=== PATIENT | male | born 1970 | race Caucasian/White ===

== ENCOUNTER 2018-04-17 09:35 | Day surgery (SDC) | payer OTHER ==
[2018-04-17 09:35] LABS: Absolute Lymphocytes (CBC) 1.4 K/uL (0.7-4.9); Absolute Monocytes 0.4 K/uL (0.1-1.3); Absolute Neutrophil 4.6 K/uL (1.8-8.0); Basophils % 0.9 % (0-1.3); Eosinophils % 4.3 % (0-4.4); Hematocrit 47.1 % (39.6-49.0); Lymphocytes % 21.1 % (15.3-44.8); MCH 31.5 pg (27.0-35.0); MCV 96.2 fL (80-100); Monocytes % 5.4 % (3.3-12.3)
--- OUTSIDE RECORDS SUMMARY | 2018-04-17 09:39 | XMS REPORT | Clinical Summary ---
:1970 Author Organization [facility] Address [address] [place] [address] Care Team Providers Name Role Phone Asked, No Pcp Primary Care Provider Unavailable Allergies No Known Allergies Current Medications Prescription Sig. Disp. Refills Start Date End Date Status metoprolol tartrate Take 25 mg by Active (LOPRESSOR) 25 MG mouth daily. tablet levothyroxine Take 125 mcg Active (SYNTHROID, by mouth LEVOTHROID) 125 MCG every tablet morning. spironolactone Take 25 mg by Active (ALDACTONE) 25 MG mouth daily. tablet torsemide (DEMADEX) TAKE ONE & 45 tablet 0 02/02/2017 Active 20 MG tablet ONE-HALF TABLETS BY MOUTH ONCE DAILY lisinopril Take 10 mg by Active (PRINIVIL,ZESTRIL) mouth daily. 10 mg tablet amitriptyline Take 25 mg by 07/15/2017 Discontinued (ELAVIL) 25 MG mouth tablet nightly. aspirin (ECOTRIN) 81 Take 81 mg by 07/15/2017 Discontinued MG enteric coated mouth daily. tablet digOXIN (LANOXIN) Take 125 mcg 07/15/2017 Discontinued 125 mcg tablet by mouth daily. Active Problems Patient Care Coordination Note Pt has [employer] device Problem Noted Date Hypotension 08/26/2016 SOB (shortness of breath) on exertion 08/24/2016 Encounters Date Type Specialty Care Team Description 07/21/2017 Documentation Cardiology Macrina Huffman RN 07/15/2017 Hospital Encounter Procedural Sharon, Essential hypertension; Cardiology MD Shahana Congestive heart failure, unspecified congestive heart failure chronicity, unspecified congestive heart failure type 07/15/2017 Office Visit Cardiology Sharon Essential hypertension ( Primary Dx); MD Shahana Congestive heart failure, unspecified congestive heart failure chronicity, unspecified congestive heart failure type 07/15/2017 Orders Only Cardiology Shahana Herrera MD after 04/16/2017 Social History Tobacco Use Types Packs/Day Years Used Date Current Some Day Smoker Cigarettes 3 Tobacco Cessation: Ready to Quit: No Comments: 3-6 CIGARETTES /DAY Alcohol Use Drinks/Week oz/Week Comments Yes 3-6 Cans of beer 3.6 - 7.2 3 X A WEEK OCCASIONALY 3-6 Shots of liquor Sex Assigned at Date Recorded Not on file Last Filed Vital Signs Vital Sign Reading Time Taken Blood Pressure 155/109 07/15/2017 4:01 PM CDT Pulse 95 07/15/2017 4:01 PM CDT Temperature - - Respiratory Rate 16 07/15/2017 4:01 PM CDT Oxygen Saturation 99% 07/15/2017 4:01 PM CDT Inhaled Oxygen Concentration - - Weight 76.5 kg (168 lb 9.6 oz) 07/15/2017 4:01 PM CDT Height 177.8 cm (5' 10") 07/15/2017 4:01 PM CDT Body Mass Index 24.19 07/15/2017 4:01 PM CDT Plan of Treatment Health Maintenance Due Date Last Done Comments INFLUENZA VACCINE 05/17/2018 Implants Implanted Type Area Pharmacy Delivery Driver Device Identifier Expiration Date Model / Serial / Lot Aicd Aicd Procedures Procedure Name Priority Date/Time Associated Comments Diagnosis ECHOCARDIOGRAM 2D Routine 07/15/2017 5:56 Essential Results for this COMPLETE W MMODE PM CDT hypertension procedure are in SPECTRAL COLOR DOPPLER Congestive heart the results (33371) failure, section. unspecified congestive heart failure chronicity, unspecified congestive heart failure type THYROID STIMULATING Routine 07/15/2017 4:45 Results for this HORMONE PM CDT procedure are in the results section. CBC WITH PLATELET AND Routine 07/15/2017 4:45 Results for this DIFFERENTIAL PM CDT procedure are in the results section. SEDIMENTATION RATE Routine 07/15/2017 4:45 Results for this PM CDT procedure are in the results section. COBALT, SERUM OR PLASMA Routine 07/15/2017 4:45 Results for this PM CDT procedure are in the results section. COMPREHENSIVE METABOLIC Routine 07/15/2017 4:45 Results for this PANEL PM CDT procedure are in the results section. ECG 12-LEAD Routine 07/15/2017 4:10 Essential Results for this PM CDT hypertension procedure are in Congestive heart the results failure, section. unspecified congestive heart failure chronicity, unspecified congestive heart failure type after 04/16/2017 Results Echocardiogram complete w contrast and 3D if needed (07/15/2017 5:56 PM) Narrative Performed At [facility] Echocardiography Report [id number] [facility], [place] [id number] Pat.Name:Naz CRUMP.ID:[id number] .Date: 07/15/2017 Refer.MD:SHAHANA HERRERA MD Exam Time: 5:15:00 PMStudy Type:Routine Echo Height:70inWeight: 168lb BSA: 1.94 m2 DOBAge:1970,46Y Sex: MALEBP:157/102 HR:89 bpmSonogrphr: PAPITO Cameron Pat. Stat.:OutpatientStudy Status:Final Echo Event ID:[id number] Order ID:[id number] Reason for Study:Dx,Essential hypertension [I10 (ICD-10-CM)]; Congestive heart failure, unspecified congestive heart failure chronicity, unspecified congestive heart failure type [I50.9 (ICD-10-CM)] History / Clinical:Congestive Heart Failure, Smoker /2 PPD, quit 06/2011, Shortness of Breath, Ex-Smoker(quit 06/2011), Thyroid Cancer, Atrial Fibrillation, Chest Pain, Chromium and [place] Toxicity Procedures:2D Echo, Colorflow Doppler Race:C SUMMARY: LV size is moderately enlarged. LV systolic function is moderately to severely depressed. EF=31%. LA size is normal. Diastolic dysfunction Grade I (Mild): Impaired relaxation with normal LV filling pressures. Insufficient TR jet to estimate PA systolic pressure. Unchanged from 2015. FINDINGS: LV: LV size is moderately enlarged. LV systolic function is moderatelyto severely depressed. Global hypokinesis. EF=31%. RV: RV size is normal. RV systolic function is normal. LA: LA size is normal. RA: RA size is normal. AO: Aortic root diameter is normal. SANDRO: No pericardial effusion. AV: No structural AV abnormalities noted. MV: No structural MV abnormalities noted. PV: No structural PV abnormalities noted. TV: No structural TV abnormalities noted. Luis: Diastolic dysfunction Grade I (Mild): Impaired relaxation withnormal LV filling pressures. Other:Insufficient TR jet to estimate PA systolic pressure. MEASUREMENTS: 2D Parasternal Long [place] LVOT 2.6 cmLA Ds3.8 cm LVIDd6.1 cmIndex3.2 cm/m Ao An2.8 cm LVIDs5.4 cmAo Rtd 3.8 cm Index1.9 cm/m LV%fs 11.4 % LV Dpcj577.4 g(122-174) IVSd 0.8 cmLVM Grvoq219.7 g/m2 LVPWd0.8 cmRWT0.3 LV EF SinglePlane LV Ad 43.6 cm2(9.5-22.3) SWOVQ607.5 ml Index60 ml/m PJSAB116.9 ml (65-193) Index88.1 ml/m LV SV 54.4 ml LV As 34.5 cm2(4-11.6) LV EF 31.8 %(63-77) LA Sng Plane LA Area 17.7 cm2(8.8-23.4) LA Vol54.2 ml Index27.9 ml/m LA LngAx 4.8 cm DOPPLER LVOT For Flow LVOT Area5.3 cm2 LVOT SV 66.4 ml LVOTpkVel 65.7 cm/sHR87.3 bpm LVOTpkPG 1.7 mmHgLVOT CO5.8 l/min LVOTmnPG 0.9 mmHgLVOT CI3 l/m/m2 LVOT TVI12.5 cm Signed 07/17/2017 08:39 PM Zane Ibanez M.D. Procedure Note Interface, Radiology Results In - 07/17/2017 8:40 PM CDT Echocardiography Report [id number] [address] Pat.Name: JERRICA CRUMP.ID: [id number] .Date: 07/15/2017 Refer.MD: SHAHANA HERRERA MD Exam Time: 5:15:00 PM Study Type:Routine Echo Height: 70in Weight: 168lb BSA: 1.94 m2 Age: 2 1970,46Y Sex: MALE BP: 157/102 HR: 89 bpm Sonogrphr: PAPITO Cameron Pat. Stat.:Outpatient Study Status:Final Echo Event ID:[id number] Order ID: [id number] Reason for Study:Dx, Essential hypertension [I10 (ICD-10-CM)]; Congestive heart failure, unspecified congestive heart failure chronicity, unspecified congestive heart failure type [I50.9 (ICD-10-CM)] History / Clinical:Congestive Heart Failure, Smoker /2 PPD, quit 06/2011, Shortness of Breath, Ex-Smoker(quit 06/2011), Thyroid Cancer, Atrial Fibrillation, Chest Pain, Chromium and [place] Toxicity Procedures:2D Echo, Colorflow Doppler Race: C SUMMARY: LV size is moderately enlarged. LV systolic function is moderately to severely depressed. EF=31%. LA size is normal. Diastolic dysfunction Grade I (Mild): Impaired relaxation with normal LV filling pressures. Insufficient TR jet to estimate PA systolic pressure. Unchanged from 2015. FINDINGS: LV: LV size is moderately enlarged. LV systolic function is moderately to severely depressed. Global hypokinesis. EF=31%. RV: RV size is normal. RV systolic function is normal. LA: LA size is normal. RA: RA size is normal. AO: Aortic root diameter is normal. SANDRO: No pericardial effusion. AV: No structural AV abnormalities noted. MV: No structural MV abnormalities noted. PV: No structural PV abnormalities noted. TV: No structural TV abnormalities noted. Luis: Diastolic dysfunction Grade I (Mild): Impaired relaxation with normal LV filling pressures. Other: Insufficient TR jet to estimate PA systolic pressure. MEASUREMENTS: 2D Parasternal Long [place] LVOT 2.6 cm LA Ds 3.8 cm LVIDd 6.1 cm Index 3.2 cm/m Ao An 2.8 cm LVIDs 5.4 cm Ao Rtd 3.8 cm Index 1.9 cm/m LV%fs 11.4 % LV Mass 195.4 g (122-174) IVSd 0.8 cm LVM Index 100.7 g/m2 LVPWd 0.8 cm RWT 0.3 LV EF SinglePlane LV Ad 43.6 cm2 (9.5-22.3) LVESV 116.5 ml Index 60 ml/m LVEDV 170.9 ml (65-193) Index 88.1 ml/m LV SV 54.4 ml LV As 34.5 cm2 (4-11.6) LV EF 31.8 % (63-77) LA Sng Plane LA Area 17.7 cm2 (8.8-23.4) LA Vol 54.2 ml Index 27.9 ml/m LA LngAx 4.8 cm DOPPLER LVOT For Flow LVOT Area 5.3 cm2 LVOT SV 66.4 ml LVOTpkVel 65.7 cm/s HR 87.3 bpm LVOTpkPG 1.7 mmHg LVOT CO 5.8 l/min LVOTmnPG 0.9 mmHg LVOT CI 3 l/m/m2 LVOT TVI 12.5 cm Signed 07/17/2017 08:39 PM Zane Ibanez M.D. Performing Organization Address City/State/Zipcode Phone Number [facility] [address] [place] [address] [place], serum or plasma (07/15/2017 4:45 PM) [place], serum or 0.8 (H) 0.1 - 0.4 mcg/L [facility] plasma Comment: [facility]/51edj HUTTO This test was developed and its analytical performance characteristics have been determined by [facility] [place], [place]. It has not been cleared or approved by the U.S. Food and Drug Administration. This assay has been validated pursuant to the CLIA regulations and is used for clinical purposes. Narrative Performed At FASTING:NO [facility] Resulting Agency Comment Performing Organization Information: Site ID: [id number] Name: [facility] Address: [address] [place] [phone] Director: Leeroy Dubon M.D.,PhD Performing Organization Address [facility] Phone Number [facility] [employer] [address] [place] [address] [place] Sedimentation rate (07/15/2017 4:45 PM) Sedimentation rate 2 < OR=15 mm/h [facility] [place] Narrative Performed At FASTING:NO [facility] Resulting Agency Comment Performing Organization Information: Site ID: [id number] Name: [facility] Address: [address] [place] [phone] Director: Lesli Brandon MD Performing Organization Address [facility] Centercode Phone Number [email or web address] [address] [address] CBC with platelet and differential (07/15/2017 4:45 PM) WBC 5.9 3.8 - 10.8 Thousand/uL [facility] [place] RBC 5.03 4.20 - 5.80 Million/uL [facility] [place] HGB 15.6 13.2 - 17.1 g/dL [facility] [place] HCT 46.5 38.5 - 50.0 % [facility] [place] MCV 92.4 80.0 - 100.0 fL [facility] [place] MCH 31.0 27.0 - 33.0 pg [facility] [place] MCHC 33.5 32.0 - 36.0 g/dL [facility] [place] RDW 12.5 11.0 - 15.0 % [facility] [place] Platelet count 225 140 - 400 Thousand/uL [facility] [place] MPV 10.1 7.5 - 12.5 fL [facility] [place] Neutrophils, absolute 3,918 1,500 - 7,800 cells/uL [facility] [place] Lymphocytes, absolute 1,422 850 - 3,900 cells/uL [facility] [place] Monocytes, absolute 348 200 - 950 cells/uL [facility] [place] Eosinophils, absolute 142 15 - 500 cells/uL [facility] [place] Basophils, absolute 71 0 - 200 cells/uL [facility] [place] Neutrophils 66.4 % [facility] [place] Lymphocytes 24.1 % [facility] [place] Monocytes 5.9 % [facility] [place] Eosinophils 2.4 % [facility] [place] Basophils + RC 1.2 % [facility] [place] Narrative Performed At FASTING:NO [facility] Resulting Agency Comment Performing Organization Information: Site ID: [id number] Name: [facility] Address: [address] [place] [phone] Director: Lesli Brandon MD Performing Organization Address City/State/Zipcode Phone Number [email or web address] [place] [phone] Thyroid stimulating hormone (07/15/2017 4:45 PM) TSH 43.19 (H) 0.40 - 4.50 mIU/L [facility] [place] Narrative Performed At FASTING:NO [facility] Resulting Agency Comment Performing Organization Information: Site ID: [id number] Name: [facility] Address: [address] [place] [phone] Director: Lesli Brandon MD Performing Organization Address City/State/Zipcode Phone Number [email or web address] [address] [address] Comprehensive metabolic panel (07/15/2017 4:45 PM) Glucose 92 65 - 99 mg/dL [facility] Comment: [place] Fasting reference interval BUN, whole blood 11 7 - 25 mg/dL [facility] [place] Creatinine 1.23 0.60 - 1.35 mg/dL [facility] [place] EGFR Non-Afr. Z[place]ian 71 > OR=60 [facility] mL/min/1.73m2 [place] EGFR 82 > OR=60 [facility] mL/min/1.73m2 [place] BUN/creatinine ratio NOT APPLICABLE 6 - 22 (calc) [facility] [place] Sodium 142 135 - 146 mmol/L [facility] [place] Potassium 4.4 3.5 - 5.3 mmol/L [facility] [place] Chloride 106 98 - 110 mmol/L [facility] [place] CO2 30 20 - 31 mmol/L [facility] [place] Calcium 9.3 8.6 - 10.3 mg/dL [facility] [place] Protein 7.4 6.1 - 8.1 g/dL [facility] [place] Albumin, S 4.7 3.6 - 5.1 g/dL [facility] [place] Globulin, total 2.7 1.9 - 3.7 g/dL [facility] (calc) [place] Albumin/globulin ratio 1.7 1.0 - 2.5 (calc) [facility] [place] Total bilirubin 0.4 0.2 - 1.2 mg/dL [facility] [place] Alkaline phosphatase 60 40 - 115 U/L [facility] [place] AST 18 10 - 40 U/L [facility] [place] ALT 16 9 - 46 U/L [facility] [place] Narrative Performed At FASTING:NO [facility] Resulting Agency Comment Performing Organization Information: Site ID: [id number] Name: [facility] Address: [address] [place] [phone] Director: Lesli Brandon MD Performing Organization Address City/State/Zipcode Phone Number [email or web address] [place] [phone] ECG 12 lead (07/15/2017 4:10 PM) Ventricular rate 80 [facility] Atrial rate 80 [facility] [place] interval 180 [facility] QRSD interval 92 [facility] QT interval 374 [facility] QTC interval 431 [facility] P axis 1 78 [facility] QRS axis 1 53 [facility] T wave axis 97 [facility] EKG impression Normal sinus rhythm with sinus arrhythmia-Nonspecific T wave abnormality-Abnormal ECG-In automated comparison with ECG of 25-AUG-2016 15:34,- Criteria for Inferior infarct are no longer present-Nonspecific T wave abnormality, worse in Inferior [facility] leads- : 14 AM Performing Organization Address City/State/Zipcode Phone Number [facility] [address] [place] [address] after 04/16/2017 Insurance Payer Benefit Plan / Group Subscriber ID Type Phone Address MEDICARE MEDICARE PART A AND B xxxxxxxxxx Medicare [place], [place] Home: [address] [phone] [place] [phone]
[2018-04-17] MEDS ORDERED: Ringers Lactate 1,000 ML IV ONE (09:58)
[2018-04-17] MEDS ORDERED: CEFAZOLIN/SWI 1gm 1 GM/10 ML SYR ONE (09:58)
--- NOTE | 2018-04-17 10:00 | RAD REPORT ---
EXAM DESCRIPTION: RAD - Chest Pa And Lat (2 Views) - 04/17/2018 9:28 am CLINICAL HISTORY: Preop chest, pending hernia repair, history of cardiomegaly, hypertension and defi brillator. COMPARISON: November 2016 TECHNIQUE: PA and lateral views of the chest were obtained. FINDINGS: The lungs are clear of failure, infiltrate or mass. Lung markings are similar to the kendrick rison study. Defibrillator remains in place. No cardiomegaly or vascular engorgement. Trachea is mi dline. No pleural effusion or pneumothorax seen. No acute bony finding noted. No aortic abnormality . IMPRESSION: No acute cardiopulmonary process. No significant change from November 2016.
[2018-04-17 10:11] LABS: Digoxin Level 0.1 ng/mL (1.0-2.0)
[2018-04-17] MEDS ORDERED: BUPIVACAINE 0.5% PF 10 ML VIAL ONE ×2 (10:38→10:55)
[2018-04-17] MEDS ORDERED: FENTANYL CITR 250 MCG/5 ML ONE (10:51)
[2018-04-17] MEDS ORDERED: MIDAZOLAM HCL 2 MG/2 ML INJ ONE (10:51)
[2018-04-17] MEDS ORDERED: PROPOFOL 200 MG/20 ML VIAL IV ONE (10:51)
[2018-04-17] MEDS ORDERED: LIDOCAINE 2% MPF 5 ML VIAL ONE (10:51)
[2018-04-17] MEDS ORDERED: ROCURONIUM 50 MG/5 ML VIAL IV ONE (10:54)
[2018-04-17] MEDS ORDERED: GLYCOPYRROLATE 0.2 MG/ML SYR ONE (11:38)
[2018-04-17] MEDS ORDERED: KETOROLAC 30 MG/ML INJ ONE (11:38)
[2018-04-17] MEDS ORDERED: NEOSTIGMINE 1 MG/ML -5 ML SYRINGE ONE (11:40)
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
--- NOTE | 2018-04-17 12:12 | RAD REPORT ---
EXAM DESCRIPTION: RAD - Fluoroscopy <1 Hour - 04/17/2018 12:01 pm CLINICAL HISTORY: Foreign body removal COMPARISON: None. FINDINGS: Abdominal fluoroscopy performed. There were 15 static images submitted. Fluoro time was 0. 4 minutes. Cumulative dose was 10.5 mGy. Fluoroscopic images show stepwise positioning of surgical hardware for foreign body removal. No suspi cious or unexpected finding. IMPRESSION: Fluoroscopic imaging for foreign body removal as detailed.
--- NOTE | 2018-04-17 12:56 | EKG ---
Test Date: 2018-04-17 Test Time: 09:20:53 Service Tech/Welder: ANNA MEASUREMENT RESULTS: Intervals: Rate: 55 VA: 184 QRSD: 96 QT: 470 QTc: 449 [place]: P: 46 VA: 184 QRS: 39 T: 197 INTERPRETIVE STATEMENTS: Sinus bradycardia T wave abnormality, consider inferolateral ischemia Abnormal ECG Compared to ECG 04/04/2016 19:41:43 Possible ischemia now present Sinus rhythm no longer present T-wave abnormality still present Electronically Signed On 04-17-18 12:55:06 CDT by Kvng Mukherjee
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
== END 2018-04-17 12:57 | disposition home or self-care (01) ==
LOC: OR 09:35
PROVIDERS: ATTEND Surgery
PROC: 0WQF0ZZ Repair Abdominal Wall, Open Approach (ICD-10-PCS; principal; 2018-04-17 11:00)
PROC: 0JC80ZZ Extirpation of Matter from Abdomen Subcutaneous Tissue and Fascia, Open Approach (ICD-10-PCS; 2018-04-17 11:00)
DX: K42.0 Umbilical hernia with obstruction, without gangrene (principal); M79.5 Residual foreign body in soft tissue; Z85.850 Personal history of malignant neoplasm of thyroid; F17.200 Nicotine dependence, unspecified, uncomplicated
CPT/HCPCS: 20102; 36415; 49587; 71046; 80048; 80162; 85025; 88300; 93005; J0690; J2250; J2710; 76000

== ENCOUNTER 2020-12-07 10:18 | Emergency (ER) | payer OTHER ==
--- OUTSIDE RECORDS SUMMARY | 2020-12-07 10:22 | XMS REPORT | Clinical Summary ---
:1970 Author Organization [facility] Address [address] [place] [address] Care Team Providers Name Role Phone Dmitri Yost Guide Travel Allergies Not on File Medications Not on file Active Problems Not on file Social History Tobacco Use Types Packs/Day Years Used Date Never Assessed Sex Assigned at Date Recorded Not on file Last Filed Vital Signs Not on file Plan of Treatment Not on file Results Not on fileafter 12/07/2019
--- OUTSIDE RECORDS SUMMARY | 2020-12-07 10:22 | XMS REPORT | Clinical Summary ---
:1970 Author Organization [facility] Address [address] [place] [address] Care Team Providers Name Role Phone Asked, Pcp Primary Care Provider Unavailable Allergies No Known Active Allergies Medications Medication Sig Dispensed Refills Start Date End Date Status levothyroxine Take 125 mcg 0 Act jessy (SYNTHROID, by mouth LEVOTHROID) 125 MCG every tablet morning. aspirin (ECOTRIN) Take 1 0 Ac tive 81 MG enteric tablet every coated tablet day by oral route for 30 days. metoprolol tartrate Take 1 90 tablet 3 12/25/2019 Active (LOPRESSOR) 25 mg tablet (25 tabletIndications: mg total) by Congestive heart mouth daily. failure, unspecified HF chronicity, unspecified heart failure type (HCC), Abnormal findings on diagnostic imaging of heart and coronary circulation spironolactone Take 1 90 tablet 3 12/25/2019 Acti ve (ALDACTONE) 25 MG tablet (25 tabletIndications: mg total) by Congestive heart mouth daily. failure, unspecified HF chronicity, unspecified heart failure type (HCC), Abnormal findings on diagnostic imaging of heart and coronary circulation sacubitriL-valsarta Take 1 180 tablet 3 12/25/2019 Active n (ENTRESTO) 24-26 tablet by mg tablet per mouth 2 tabletIndications: (two) times Congestive heart a day. failure, unspecified HF chronicity, unspecified heart failure type (HCC), Abnormal findings on diagnostic imaging of heart and coronary circulation torsemide (DEMADEX) Take 1 90 tablet 3 12/27/2019 Active 20 MG tablet (20 tabletIndications: mg total) by Congestive heart mouth daily. failure, unspecified HF chronicity, unspecified heart failure type (HCC), Abnormal findings on diagnostic imaging of heart and coronary circulation metoprolol tartrate Take 25 mg 0 Discontinued (LOPRESSOR) 25 MG by mouth 0 (R eorder) tablet daily. spironolactone Take 25 mg 0 Disc ontinued (ALDACTONE) 25 MG by mouth 0 (R eorder) tablet daily. torsemide (DEMADEX) TAKE ONE & 45 tablet 0 02/02/2017 12/25/19 2 Discontinued 20 MG tablet ONE-HALF 0 (Reorde r) TABLETS BY MOUTH ONCE DAILY lisinopril Take 10 mg 0 Disconti nued (PRINIVIL,ZESTRIL) by mouth 0 ( Therapy 10 mg tablet daily. complet ed) torsemide (DEMADEX) Take 1 90 tablet 3 12/25/2019 Discontinued 20 MG tablet (20 0 (Reorder) tabletIndications: mg total) by Congestive heart mouth as failure, needed (for unspecified HF swelling). chronicity, unspecified heart failure type (HCC), Abnormal findings on diagnostic imaging of heart and coronary circulation Active Problems Patient Care Coordination Note Pt has Medtronic device Problem Noted Date Hypotension 08/26/2016 SOB (shortness of breath) on exertion 08/24/2016 Encounters Date Type Specialty Care Team Description 12/02/2020 Orders Only Cardiology Arely Sosa MA Congesti ve heart failure, unspecified HF chronicity, unspecified hea rt failure type (HCC) (Dee daniel Dx) 11/24/2020 Travel 11/24/2020 Telephone Cardiology Jeffrey Herrera MD Appoint ment 11/18/2020 Travel 11/17/2020 Travel 11/17/2020 Telephone Cardiology Jeffrey Herrera MD Return Call (Dr. Herrera) 12/27/2019 Refill Cardiology Petros Boucher MA Med Refi ll 12/25/2019 Office Visit Cardiology Jeffrey Herrera MD Congest jessy heart failure, unspecified HF chronicity, unspecified heart failure type (HCC) (Primary Dx); Abnormal findin gs on diagnostic imaging of heart and coronary circulation 12/25/2019 Travel after 12/07/2019 Surgical History Surgery Date Site/Laterality Comments TOTAL HIP ARTHROPLASTY TOTAL HIP ARTHROPLASTY Left CARDIAC DEFIBRILLATOR PLACEMENT Left CLOSED REDUCTION SHOULDER DISLOCATION Left Medical History Medical History Date Comments Disease of thyroid gland Thyroid cancer (HCC) Heart failure (HCC) 2010 [place] toxicity Chromium toxicity A-fib (HCC) SVT (supraventricular tachycardia) (HCC) Enlarged heart CHF (congestive heart failure) (HCC) Social History Tobacco Use Types Packs/Day Years Used Date Current Some Day Smoker Cigarettes 3 Smokeless Tobacco: Never Used Tobacco Cessation: Ready to Quit: No Comments: 3-6 CIGARETTES /DAY Alcohol Use Drinks/Week oz/Week Comments Yes 3-6 Cans of beer 6.0 - 12.0 3 X A WEEK OCCASIONALY 3-6 Shots of liquor Sex Assigned at Date Recorded Not on file Job Start Date Occupation Industry Not on file Not on file Not on file COVID-19 Exposure Response Date Recorded In the last month, have you been in contact Unable to assess 11/24/2020 9:14 AM [employer]PERVIS[employer]DER[employer] with someone who was confirmed or suspected to have Coronavirus / COVID-19? Last Filed Vital Signs Vital Sign Reading Time Taken Comments Blood Pressure 133/86 12/25/2019 1:27 PM CDT Pulse 103 12/25/2019 1:27 PM CDT Temperature - - Respiratory Rate - - Oxygen Saturation 100% 12/25/2019 1:27 PM CDT Inhaled Oxygen Concentration - - Weight 76.7 kg (169 lb) 12/25/2019 1:27 PM CDT Height 177.8 cm (5' 10") 12/25/2019 1:27 PM CDT Body Mass Index 24.25 12/25/2019 1:27 PM CDT Plan of Treatment Date Type Specialty Care Team Description 12/12/2020 Appointment Procedural Cardiology Jeffrey Herrera MD [address] [facility] [address] [place], [place] [address] [phone] Health Maintenance Due Date Last Done Comments COVID-19 VACCINE (1 of 2) 1988 HEPATITIS C SCREENING 1990 INFLUENZA VACCINE 05/17/2020 Implants Implanted Type Area Night Warehouse Selector Device Identifier Shelf Exp iration Model / Serial Date / Lot Aicd Aicd Procedures Procedure Name Priority Date/Time Associated Diagnosis Comme nts ECG 12-LEAD Routine 12/25/2019 12:33 PM Congestive heart Resu lts for this CDT failure, unspecified procedu re are in HF chronicity, the results unspecified heart section. failure type (HCC) after 12/07/2019 Results ECG 12 lead (12/25/2019 12:33 PM CDT) Pathologist Sig nature Ventricular rate 76 [facility] Atrial rate 76 [facility] W[place] interval 186 [facility] QRSD interval 92 [facility] QT interval 398 [facility] QTC interval 447 [facility] P axis 1 86 [facility] QRS axis 1 63 [facility] T wave axis -55 [facility] EKG impression Normal sinus rhythm-Inferior infarct , age undetermined-T wave abnormality, consider anterolateral ischemia-Abnormal ECG-In automated comparison with ECG of 15-JUL-2017 16:10,-Inferior infarct is now pr [facility] esent-Inverted T waves have replaced nonspecific T wave abnormality in Inferior leads-T wave inversion now evident in Anterior leads- Specimen Narrative Performed At This result has an attachment that is no t available. 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
--- OUTSIDE RECORDS SUMMARY | 2020-12-07 10:22 | XMS REPORT | Continuity of Care Document ---
:1970 Author Organization [facility] t Address [address] [place] [address] Care Team Providers Name Role Phone Asked, Pcp Primary Care Physician Unavailable Ian OVIEDO Attending Clinician Unavailable Sharon SERNA Attending Clinician Lorena Boucher MA Attending Clinician Unavailable Payers Payer Name Policy Type Policy Effective Date Expiration Date Sour ce Number MEDICAREMEDICARE PART [id number] 2013 naun [place] AND 00:00:00 [id number] [place] [facility] Problems Condition Condition Condition Status Onset Resolution Last Treating Co mments Source Name Details Category Date Date Treatment Clinician Date Hypotensio Hypotensio Disease Active 2015-10 H lázaro n n 1-10 [facility] 00:00: st 00 SOB SOB Disease Active 2015-10 [place] (shortness (shortness 1-08 Me thodi of breath) of breath) 00:00: st on on 00 exertion exertion Allergies, Adverse Reactions, Alerts This patient has no known allergies or adverse reactions. Social History Social Habit Start Date Stop Date Quantity Comments Source History of tobacco Cigarette Smoker Barry use Anabaptism Exposure to Unable to assess Saunemin SARS-CoV-2 (event) Method ist Sex Assigned At [facility] Cigarettes smoked 2019-12-25 2019-12-25 Saunemin current (pack per 00:00:00 00:00:[address] day) - Reported Tobacco use and 2019-12-25 2019-12-25 Never used [place]emin exposure 00:00:00 00:00:00 [employer]ab[employer]ism Alcohol intake 2019-12-25 2019-12-25 Current drinker of Derrick magallon 00:00:00 00:00:00 alcohol (finding) Methodi st Tobacco Comment 2016-08-24 2016-08-24 3-6 CIGARETTES [place] 00:00:00 00:00:00 /DAY [facility] Alcohol Comment 2016-08-24 2016-08-24 3 X A WEEK Barry 00:00:00 00:00:00 OCCASIONALY [facility]abaptism Smoking Status Start Date Stop Date Source Current some day smoker 2019-12-25 00:00:00 [place] [facility] Medications Ordered Filled Start Stop Current Ordering Indication Dosage Frequency Signature Comments Components Source Medication Medication Date Date Medication? Clinician (SIG) Name Name torsemide Yes Abnormal 20mg QD Take 1 Derrick magallon (DEMADEX) 3-12 findings on tablet (20 Methodi 20 MG 00:00: diagnostic mg total) s t tablet 00 imaging of by mouth heart and daily. coronary circulation metoprolol 2020- No 25mg Take 25 mg Barry tartrate 3-10 03-10 by mouth Method i (LOPRESSOR) 14:36: 00:[address] 25 MG 53 :00 tablet spironolact 2019-0 2020- No 25mg QD Take 25 mg Barry one 3-10 03-10 by mouth Methodi (ALDACTONE) 14:36: 00:[address] 25 MG 53 :00 tablet lisinopril 0 2020- No 10mg QD Take 10 mg Barry (PRINIVIL,Z 3-10 03-10 by mouth Met hodi ESTRIL) 10 14:32: 00:[address] mg tablet 58 :00 aspirin 0 Yes Take 1 Barry (ECOTRIN) 3-10 tablet Methodi 81 MG 13:30: every day st enteric 12 by oral coated route for tablet 30 days. metoprolol Yes Abnormal 25mg Take 1 [place] tartrate 3-10 findings on tablet (25 Methodi (LOPRESSOR) 00:00: diagnostic mg total) st 25 mg 00 imaging of by mouth tablet heart and daily. coronary circulation spironolact 0 Yes Abnormal 25mg QD Take 1 Barry one 3-10 findings on tablet (25 Me thodi (ALDACTONE) 00:00: diagnostic mg total) st 25 MG 00 imaging of by mouth tablet heart and daily. coronary circulation sacubitriL- Yes Abnormal 1{tbl} Q.5D Take 1 Barry valsartan 3-10 findings on tablet by Methodi (ENTRESTO) 00:00: diagnostic mouth 2 st 24-26 mg 00 imaging of (two) tablet per heart and times a tablet coronary day. circulation torsemide 2019- No Abnormal 20mg Take 1 [place] (DEMADEX) 3-10 03-12 findings on tablet (20 Methodi 20 MG 00:00: 00:00 diagnostic mg total) st tablet 00 :00 imaging of by mouth heart and as needed coronary (for circulation swelling). levothyroxi Yes 125ug QD Take 125 [place] ne 9-29 mcg by Methodi (SYNTHROID, 16:04: mouth st LEVOTHROID) 34 every 125 MCG morning. tablet torsemide 2019- No TAKE ONE & [place] (DEMADEX) -19 03-10 ONE-HALF Metho di 20 MG 00:00: 00:[address] tablet 00 :00 MOUTH ONCE DAILY Vital Signs Vital Name Observation Time Observation Value Comments Source Systolic blood 2019-12-25 13:27:00 133 mm[Hg] Marilee n Anabaptism pressure Diastolic blood 2019-12-25 13:27:00 86 mm[Hg] Tammi chapman Anabaptism pressure Heart rate 2019-12-25 13:27:00 103 /min Jhonny Allan Body height 2019-12-25 13:27:00 177.8 cm Jhonny Allan Body weight 2019-12-25 13:27:00 76.658 kg Jhonny Allan BMI 2019-12-25 13:27:00 24.25 kg/m2 Jhonny Allan Oxygen saturation in 2019-12-25 13:27:00 100 /min Jhonny Allan Arterial blood by Pulse oximetry Procedures Procedure Date / Time Performed Performing Clinician [facility] e ECG 12-LEAD 2019-12-25 12:33:02 Jeffrey Herrera Met tk Plan of Care Planned Activity Planned Date Details Comments Source Future Scheduled 2020-05-17 INFLUENZA VACCINE [place] [facility] Test 00:00:00 [code = INFLUENZA VACCINE] Future Scheduled 1990 Hepatitis C Jhonny Met hodist Test 00:00:00 screening (procedure) [code = 309554268] Future Scheduled 1988 COVID-19 VACCINE (1 [place] [facility] Test 00:00:00 of 2) [code = COVID-19 VACCINE (1 of 2)] Encounters Start End Encounter Admission Attending Care Care Encounter Source Date/Time Date/Time Type Type Clinicians Facility Department ID 2020-08-19 2020-08-19 Outpatient [facility] [id number] [facility]00 Fabiola jimenez Outpati ent Clinics 2019-12-25 2019-12-25 [facility] [id number] [place] 00:00:00 00:00:00 JEFFREY [address] Results Test Description Test Time Test Comments Results Result Comments Source ECG 12 lead 2019-12-25 15:20:08 Test Item Value Reference Range Interpretation Comme nts Ventricular rate (test code = 253) 76 Atrial rate (test code = 255) 76 CO interval (test code = 266) 186 QRSD interval (test code = 260) 92 QT interval (test code = 264) 398 QTC interval (test code = 265) 447 P axis 1 (test code = 267) 86 QRS axis 1 (test code = 268) 63 T wave axis (test code = 270) -55 EKG impression (test code = 273) Normal sinus rhythm-Inferior infar ct , age undetermined-T wave abnormality, consider anterolateral ischemia-Abnormal ECG-In automated comparison with ECG of 15-JUL-2017 16:10,-Inferior infarct is now present-Inverted T waves have replaced nonspecific T wave abnormality in Inferior leads-T wave inversion now evident in Anterior leads- Jhonny Allan
[2020-12-07 11:06] LABS: Absolute Lymphocytes (CBC) 1.8 K/uL (0.7-4.9); Basophils % 1.1 % (0-1.3); Hematocrit 41.8 % (39.6-49.0); Lymphocytes % 26.2 % (15.3-44.8); MPV 8.8 fL (7.6-11.3); RBC Red Blood Cell Count 4.36 M/uL (4.33-5.43)
[2020-12-07 11:23] LABS: Magnesium 2.2 mg/dL (1.8-2.4); Potassium 4.1 mmol/L (3.5-5.1)
--- NOTE | 2020-12-07 11:44 | RAD REPORT ---
EXAM DESCRIPTION: RAD - Chest Single View - 12/07/2020 11:14 am CLINICAL HISTORY: PALPITATIONS, chest pain COMPARISON: Two view chest April 2018 TECHNIQUE: AP portable chest image was obtained 12/07/2020 11:14 am . FINDINGS: Lungs are clear. Heart and vasculature are normal. No measurable pleural effusion and no p neumothorax. No acute bony abnormality seen. No acute aortic findings suspected. Defibrillator in luci ce. IMPRESSION: No acute cardiopulmonary process. No significant change from comparison study.
--- NOTE | 2020-12-07 12:06 | ER ---
Nurse's Notes [facility] Name: Daniele Guadarrama Age: 49 yrs Sex: Male : 1970 Arrival Date: 12/07/2020 Time: 10:20 Bed 6 Private MD: Diagnosis: Supraventricular tachycardia Presentation: 12/07 10:25 Chief complaint: Patient states: chest pain since yesterday, HR 144 yesterday. Still ca1 feeling weird this morning. HX of CHF, SVT, A-fib and with Defib. Coronavirus screen: Client denies travel out of the [place] in the last 14 days. At this time, the client does not indicate any symptoms associated with coronavirus-19. Ebola Screen: Patient negative for fever greater than or equal to 101.5 degrees Fahrenheit, and additional compatible Ebola Virus Disease symptoms Patient denies exposure to infectious person. Patient denies travel to an Ebola-affected area in the 21 days before illness onset. No symptoms or risks identified at this time. Initial Sepsis Screen: Does the patient meet any 2 criteria? No. Patient's initial sepsis screen is negative. Does the patient have a suspected source of infection? No. Patient's initial sepsis screen is negative. Risk Assessment: Do you want to hurt yourself or someone else? Patient reports no desire to harm self or others. Onset of symptoms was December 06, 2020. 10:25 Method Of Arrival: Ambulatory ca1 10:25 Acuity: TAVARES 3 ca1 Triage Assessment: 10:25 General: Appears in no apparent distress. uncomfortable, Behavior is cooperative, bp appropriate for age, anxious. Pain: Complains of pain in chest. EENT: No deficits noted. Neuro: No deficits noted. Cardiovascular: Rhythm is sinus rhythm. Respiratory: No deficits noted. GI: No signs and/or symptoms were reported involving the gastrointestinal system. : No signs and/or symptoms were reported regarding the genitourinary system. Derm: No deficits noted. Musculoskeletal: No deficits noted. Historical: - Allergies: 10:32 No Known Allergies; ca1 - PMHx: 10:32 Atrial Fib; CHF; SVT; thyroid CA; Thyroid problem; ca1 - PSHx: 10:32 defib; L shoulder repair; hip replacement; ca1 - Immunization history:: Pneumococcal vaccine is up to date. - Social history:: Smoking status: Patient reports the use of cigarette tobacco products, denies chronic smoking, but will smoke occasionally. - Family history:: not pertinent. - Hospitalizations: : No recent hospitalization is reported. Screenin:25 Abuse screen: Denies threats or abuse. Denies injuries from another. Nutritional bp screening: No deficits noted. Tuberculosis screening: No symptoms or risk factors identified. Fall Risk None identified. Assessment: 10:25 General: SEE TRIAGE NOTE. Pain: Complains of pain in chest Pain does not radiate. Pain bp began suddenly. Cardiovascular: Rhythm is sinus rhythm. 10:45 Reassessment: [employer] INTERROGATION COMPLETED. bp 10:52 Reassessment: [employer] RESPONSE TO MD, NO ACUTE FINDINGS. bp 12:03 Reassessment: No changes from previously documented assessment. Patient and/or family bp updated on plan of care and expected duration. Pain level reassessed. Patient is alert, oriented x 3, equal unlabored respirations, skin warm/dry/pink. ALL CURRENT ORDERS COMPLETED. Vital Signs: 10:25 BP 152 / 107; Pulse 77; Resp 16; Temp 97.7(TE); Pulse Ox 99% on R/A; Weight 74.84 kg ca1 (R); Height 5 ft. 10 in. (177.80 cm) (R); 11:00 BP 147 / 104; Pulse 74; Resp 20; Pulse Ox 100% ; bp 12:00 BP 140 / 105; Pulse 73; Resp 17; Pulse Ox 100% ; bp 10:25 Body Mass Index 23.67 (74.84 kg, 177.80 cm) ca1 ED Course: 10:20 Patient arrived in ED. as 10:25 Patient has correct armband on for positive identification. Bed in low position. Call bp light in reach. Side rails up X2. night monitor on. Pulse ox on. NIBP on. 10:26 James Barton, RN is Primary Nurse. bp 10:27 Abimael Love MD is Attending Physician. rn 10:31 Triage completed. ca1 10:32 Arm band placed on right wrist. ca1 10:40 EKG done, by ED staff, reviewed by Abimael Love MD. em1 11:04 Basic Metabolic Panel Sent. em1 11:04 CBC with Diff Sent. em1 11:04 NT PRO-BNP Sent. em1 11:04 Magnesium Sent. em1 11:04 Initial lab(s) drawn, by me, sent to lab. Inserted saline lock: 20 gauge in right em1 forearm, using aseptic technique. Blood collected. 11:15 XRAY Chest (1 view) In Process Unspecified. EDMS 12:50 No provider procedures requiring assistance completed. IV discontinued, intact, iw bleeding controlled, No redness/swelling at site. Pressure dressing applied. Patient maintains SpO2 saturation greater than 95% on room air. Administered Medications: No medications were administered Outcome: 12:05 Discharge ordered by . rn 12:50 Discharged to home ambulatory. iw 12:50 Condition: good 12:50 Discharge instructions given to patient, Instructed on discharge instructions, follow up and referral plans. Demonstrated understanding of instructions, follow-up care. 12:50 Patient left the ED. iw Signatures: Dispatcher [employer] EDMS Jaymie Murillo Irene, RN RN iw Abimael Love MD MD rn Martinez, Hoang em1 James Barton RN RN bp Apurva Beasley RN RN ca1
--- NOTE | 2020-12-07 12:06 | EDPHYS ---
Physician Documentation [facility] Name: Daniele Guadarrama Age: 49 yrs Sex: Male : 1970 Arrival Date: 12/07/2020 Time: 10:20 Bed 6 Private MD: ED Physician Abimael Love HPI: 12/07 10:49 This 49 yrs old Male presents to ER via Ambulatory with complaints of Chest rn Pain - svt, Back Pain. 10:49 This 49 yrs old Male presents to ER via Ambulatory with complaints of svt, rn lightheaded. 10:50 The patient presents with a history of heart racing. Context: The symptoms occur at rn rest. Onset: The symptoms/episode began/occurred yesterday. Duration: The patient or guardian reports a single episode, that lasted 3 minute(s). Modifying factors: The symptoms are aggravated by nothing. The symptoms are alleviated by nothing. Severity of symptoms: At their worst the symptoms were moderate in the emergency department the symptoms have improved. The patient has experienced a previous episode. Reports episode of SVT yesterday, lasted 2-3 minutes, . Historical: - Allergies: 10:32 No Known Allergies; ca1 - PMHx: 10:32 Atrial Fib; CHF; SVT; thyroid CA; Thyroid problem; ca1 - PSHx: 10:32 defib; L shoulder repair; hip replacement; ca1 - Immunization history:: Pneumococcal vaccine is up to date. - Social history:: Smoking status: Patient reports the use of cigarette tobacco products, denies chronic smoking, but will smoke occasionally. - Family history:: not pertinent. - Hospitalizations: : No recent hospitalization is reported. ROS: 11:20 Constitutional: Negative for fever, chills, and weight loss, Eyes: Negative for injury, rn pain, redness, and discharge, Neck: Negative for injury, pain, and swelling, Cardiovascular: Negative for chest pain, and edema, Respiratory: Negative for shortness of breath, cough, wheezing, and pleuritic chest pain, Abdomen/GI: Negative for abdominal pain, nausea, vomiting, diarrhea, and constipation, MS/Extremity: Negative for injury and deformity, Skin: Negative for injury, rash, and discoloration, Neuro: Negative for headache, weakness, numbness, tingling, and seizure. Exam: 11:20 Constitutional: This is a well developed, well nourished patient who is awake, alert, rn and in no acute distress. Ambulatory to room without assistance or difficulty. Head/Face: Normocephalic, atraumatic. Cardiovascular: Regular rate and rhythm. No pulse deficits. Respiratory: No increased work of breathing, no retractions or nasal flaring. Abdomen/GI: Soft, non-tender Skin: Warm, dry with normal turgor. Normal color with no rashes, no lesions, and no evidence of cellulitis. MS/ Extremity: Pulses equal, no cyanosis. Neurovascular intact. Full, normal range of motion. Equal circumference. Neuro: Awake and alert, GCS 15, oriented to person, place, time, and situation. Cranial nerves II-XII grossly intact. Motor strength 5/5 in all extremities. Sensory grossly intact. Cerebellar exam normal. Normal gait. Vital Signs: 10:25 BP 152 / 107; Pulse 77; Resp 16; Temp 97.7(TE); Pulse Ox 99% on R/A; Weight 74.84 kg ca1 (R); Height 5 ft. 10 in. (177.80 cm) (R); 11:00 BP 147 / 104; Pulse 74; Resp 20; Pulse Ox 100% ; bp 12:00 BP 140 / 105; Pulse 73; Resp 17; Pulse Ox 100% ; bp 10:25 Body Mass Index 23.67 (74.84 kg, 177.80 cm) ca1 MDM: 10:27 Patient medically screened. rn 10:57 ED course: [employer] rep called, no arrhythmias and device functioning normal, will rn need battery replacement in next 1-2 months, patient aware, has cardiology appt next week. . 12:05 Differential diagnosis: arrythmia, dehydration, stress disorder. Data reviewed: vital rn signs, nurses notes, lab test result(s), EKG, radiologic studies, plain films, and as a result, I will discharge patient. Counseling: I had a detailed discussion with the patient and/or guardian regarding: the historical points, exam findings, and any diagnostic results supporting the discharge/admit diagnosis, lab results, radiology results, the need for outpatient follow up, to return to the emergency department if symptoms worsen or persist or if there are any questions or concerns that arise at home. Special discussion: I discussed with the patient/guardian in detail that at this point there is no indication for admission to the hospital. It is understood, however, that if the symptoms persist or worsen the patient needs to return immediately for re-evaluation. Based on the history and exam findings, there is no indication for further emergent testing or inpatient evaluation. I discussed with the patient/guardian the need to see the customer service advisor for further evaluation of the symptoms. 12/07 10:39 Order name: Basic Metabolic Panel; Complete Time: 11:32 rn 12/07 10:39 Order name: CBC with Diff; Complete Time: 11: rn 12/07 10:39 Order name: Magnesium; Complete Time: 11: rn 12/07 10:39 Order name: NT PRO-BNP; Complete Time: 11: rn 12/07 10:39 Order name: XRAY Chest (1 view); Complete Time: 12:04 rn 12/07 10:39 Order name: EKG; Complete Time: 10:40 rn 12/07 10:39 Order name: Cardiac monitoring; Complete Time: 10:40 rn 12/07 10:39 Order name: EKG - Nurse/Tech; Complete Time: 10:40 rn 12/07 10:39 Order name: IV Saline Lock; Complete Time: 11: rn 12/07 10:39 Order name: Labs collected and sent; Complete Time: 11: rn 12/07 10:39 Order name: O2 Per Protocol; Complete Time: 10:56 rn 12/07 10:39 Order name: O2 Sat Monitoring; Complete Time: 10:56 rn Administered Medications: No medications were administered Disposition: 12/07/20 12:05 Discharged to Home. Impression: Supraventricular tachycardia. - Condition is Stable. - Discharge Instructions: Paroxysmal Supraventricular Tachycardia. - Medication Reconciliation Form, Thank You Letter, Antibiotic Education, Prescription Opioid Use form. - Follow up: Private Physician; When: As needed; Reason: Recheck today's complaints, Re-evaluation by your physician. - Problem is new. - Symptoms have improved. Signatures: Dispatcher [employer] Gayle Lafleur RN RN iw Nieto, Roman, MD MD rn Acob, SHABNAM Mixon RN Corrections: (The following items were deleted from the chart) 10:58 10:40 TROPONIN (EMERG DEPT USE ONLY)+C.LAB.BRZ ordered. [facility] 12:50 12:05 12/07/2020 12:05 Discharged to Home. Impression: Supraventricular tachycardia. iw Condition is Stable. Forms are Medication Reconciliation Form, Thank You Letter, Antibiotic Education, Prescription Opioid Use. Follow up: Private Physician; When: As needed; Reason: Recheck today's complaints, Re-evaluation by your physician. Problem is new. Symptoms have improved. rn
[2020-12-07 12:57] VITALS: TEMP 97.7
[2020-12-07 12:59] VITALS: O2SAT 100
[2020-12-07 13:00] VITALS: BP 140/105
== END 2020-12-07 12:50 | disposition home or self-care (01) ==
LOC: ER 10:18
DX: I47.1 Supraventricular tachycardia (principal); I48.91 Unspecified atrial fibrillation; F17.210 Nicotine dependence, cigarettes, uncomplicated; Z95.810 Presence of automatic (implantable) cardiac defibrillator
CPT/HCPCS: 36415; 71045; 80048; 83735; 83880; 85025; 99285

== ENCOUNTER 2021-01-17 15:09 | Emergency (ER) | payer OTHER ==
--- OUTSIDE RECORDS SUMMARY | 2021-01-17 15:17 | XMS REPORT | Continuity of Care Document ---
:1970 Author Organization [facility] t Address [address] [place] [address] [address] [place] [address] Care Team Providers Name Role Phone FRANCISCO Attending Clinician Unavailable [facility] Attending Clinician Unavailable FRANCISCO Admitting Clinician Unavailable Problems This patient has no known problems. Allergies, Adverse Reactions, Alerts This patient has no known allergies or adverse reactions. Social History Social Habit Start Date Stop Date Quantity Comments Source Sex Assigned At [facility] Medications This patient has no known medications. Procedures This patient has no known procedures. Encounters Start End Encounter Admission Attending Care Care Encounter Source Date/Time Date/Time Type Type Clinicians Facility Department ID 2021-01-07 2021-01-07 Outpatient [facility] [id number] [place] 00:00:00 00:00:00 NADIM [address] 2021-01-05 2021-01-[address] [facility] [id number] [place] 00:00:00 00:00:00 NADIM [address] [facility] 2020-12-17 2020-12-17 Outpatient [facility] [id number] [place] 00:00:00 00:00:00 SHAHANA [address] 2020-12-17 2020-12-17 Outpatient [facility] [id number] [place] 00:00:00 00:00:00 SHAHANA [address] 2020-08-19 2020-08-19 [facility] [id number] [facility] 00:[facility]:00 00:00:00 [facility] 2019-12-25 2019-12-25 [facility] [id number] [place] 00:00:00 00:00:00 SHAHANA [address] Results This patient has no known results.
[2021-01-17] MEDS ORDERED: NA CHLORIDE 0.9% 250 ML ONE (16:43)
[2021-01-17] MEDS ORDERED: VANCOMYCIN 1 GM/VIAL ONE (16:43)
[2021-01-17] MEDS ORDERED: NA CHLORIDE 0.9% 100 ML ONE (16:43)
[2021-01-17] MEDS ORDERED: CEFEPIME/SWI 1gm 10 ML ONE (16:44)
[2021-01-17] MEDS ORDERED: NA CHLORIDE 0.9% 1,000 ML ONE (16:44)
[2021-01-17 17:07] LABS: Absolute Lymphocytes (CBC) 1.4 K/uL (0.7-4.9); Basophils % 0.8 % (0-1.3); Hematocrit 42.1 % (39.6-49.0); Lymphocytes % 13.6 % (15.3-44.8); MPV 7.6 fL (7.6-11.3); RBC Red Blood Cell Count 4.49 M/uL (4.33-5.43)
[2021-01-17 17:15] LABS: Protime INR 1.02
[2021-01-17 17:22] LABS: ALT/SGPT 21 U/L (12-78); AST/SGOT 17 U/L (15-37); Alkaline Phosphatase 83 U/L (45-117); BUN Blood Urea Nitrogen 12 mg/dL (7-18); Bicarbonate 27 mmol/L (21-32); Bilirubin Direct 0.2 mg/dL (0-0.2); Bilirubin Total 0.7 mg/dL (0.2-1.0); Glucose Level 90 mg/dL (74-106); Magnesium 2.3 mg/dL (1.8-2.4); NT PRO-BNP 176 pg/mL (<125); Potassium 4.5 mmol/L (3.5-5.1); Protein, Total 7.9 g/dL (6.4-8.2); Sodium Level 139 mmol/L (136-145); Troponin (Emerg Dept Use Only) < 0.02 ng/mL (0.0-0.045)
--- NOTE | 2021-01-17 17:23 | RAD REPORT ---
EXAM DESCRIPTION: Jhonatan Single View01/17/2021 4:18 pm CLINICAL HISTORY: Chest pain COMPARISON: November 2020 FINDINGS: The lungs appear clear of acute infiltrate. The heart is normal size Pacemaker leads are in place. IMPRESSION: No acute abnormalities displayed
--- NOTE | 2021-01-17 17:35 | ER ---
Nurse's Notes [facility] Name: Daniele Guadarrama Age: 50 yrs Sex: Male : 1970 Arrival Date: 01/17/2021 Time: 15:14 Bed 18 Private MD: Diagnosis: Cutaneous abscess of chest wall Presentation: 01/17 15:24 Chief complaint: Patient states: Had a new defib/pacemaker placed on 01/07/2021. The ca1 surgical site is swollen this morning. I was hand cuffed yesterday and I might have pull a lead inside. I am not supposed to put my hand behind my back or above my head for a month. reports tenderness and pressure on the affected area. Coronavirus screen: Client denies travel out of the [place] in the last 14 days. At this time, the client does not indicate any symptoms associated with coronavirus-19. Ebola Screen: Patient negative for fever greater than or equal to 101.5 degrees Fahrenheit, and additional compatible Ebola Virus Disease symptoms Patient denies exposure to infectious person. Patient denies travel to an Ebola-affected area in the 21 days before illness onset. No symptoms or risks identified at this time. Initial Sepsis Screen: Does the patient meet any 2 criteria? No. Patient's initial sepsis screen is negative. Does the patient have a suspected source of infection? No. Patient's initial sepsis screen is negative. Risk Assessment: Do you want to hurt yourself or someone else? Patient reports no desire to harm self or others. Onset of symptoms was January 17, 2021. 15:24 Method Of Arrival: Ambulatory ca1 15:24 Acuity: TAVARES 3 ca1 Historical: - Allergies: 15:30 No Known Allergies; ca1 - PMHx: 15:30 Atrial Fib; CHF; SVT; thyroid CA; Thyroid problem; ca1 - PSHx: 15:30 defib; L shoulder repair; hip replacement; ca1 - Immunization history:: Flu vaccine is up to date. - Social history:: Smoking status: Patient reports the use of cigarette tobacco products, smokes one-half pack cigarettes per day, Patient uses alcohol, weekly. Patient/guardian denies using alcohol, street drugs, The patient lives with family. - Family history:: not pertinent. Screenin:59 Abuse screen: Denies threats or abuse. Denies injuries from another. Nutritional zb screening: No deficits noted. Tuberculosis screening: No symptoms or risk factors identified. Fall Risk None identified. Assessment: 16:07 Reassessment: ECP at bedside discussing care. zb 16:59 General: Appears in no apparent distress. Behavior is calm, cooperative, appropriate zb for age. Pain: Denies pain. Neuro: Level of Consciousness is awake, alert, obeys commands. Cardiovascular: Heart tones S1 S2 present Patient's skin is warm and dry. Pulses are all present. Rhythm is sinus tachycardia. Respiratory: Airway is patent Respiratory effort is even, unlabored, Respiratory pattern is regular, symmetrical. GI: Derm: Skin is intact, is healthy with good turgor, Skin is dry, Skin is normal, Skin temperature is warm. Derm: Swelling on left chest area. Musculoskeletal: Range of motion: intact in all extremities. Musculoskeletal: Swelling present in anterior aspect of left upper chest. 17:31 Reassessment: Patient appears in no apparent distress at this time. Patient and/or zb family updated on plan of care and expected duration. Pain level reassessed. Patient is alert, oriented x 3, equal unlabored respirations, skin warm/dry/pink. pt requested water given water and food. verified with ecp first. 18:18 Reassessment: Patient appears in no apparent distress at this time. Patient and/or zb family updated on plan of care and expected duration. Pain level reassessed. Patient is alert, oriented x 3, equal unlabored respirations, skin warm/dry/pink. pt resting at this time. no changes. 19:42 Reassessment: Patient appears in no apparent distress at this time. Patient and/or zb family updated on plan of care and expected duration. Pain level reassessed. Patient is alert, oriented x 3, equal unlabored respirations, skin warm/dry/pink. IV medications completed. 20:09 Reassessment: notified patient of transfer information. ETA for ambulance 30 mins. zb Vital Signs: 15:24 BP 140 / 109; Pulse 105; Resp 18 S; Temp 98.7(O); Pulse Ox 98% on R/A; Weight 74.84 kg ca1 (R); Height 5 ft. 10 in. (177.80 cm) (R); Pain 2/10; 17:08 BP 156 / 103; Pulse 102; Resp 16; Pulse Ox 100% on R/A; zb 18:17 BP 152 / 96; Pulse 93; Resp 16; Pulse Ox 100% on R/A; zb 19:15 BP 145 / 101; Pulse 99; Resp 16; Pulse Ox 100% on R/A; zb 20:10 BP 129 / 80; Pulse 95; Resp 15; Pulse Ox 98% on R/A; zb 15:24 Body Mass Index 23.67 (74.84 kg, 177.80 cm) ca1 ED Course: 15:14 Patient arrived in ED. am2 15:29 Triage completed. ca1 15:30 Arm band placed on right wrist. ca1 15:35 Mendoza Juares MD is Attending Physician. ma2 15:50 Karen Berry RN is Primary Nurse. zb 16:[address] Michaela Vital at [phone]/ Rashad from his answering service will call the eb clarification operator and someone should returning our call. 16:18 XRAY Chest (1 view) In Process Unspecified. EDMS 16:50 initiated a transfer with Clifford from the [facility]. eb 17:08 Patient has correct armband on for positive identification. Bed in low position. Call zb light in reach. Side rails up X 1. alarm security or surveillance monitor on. Pulse ox on. NIBP on. Door closed. Noise minimized. Warm blanket given. 17:08 Inserted saline lock: 20 gauge in right antecubital area, using aseptic technique. zb Blood collected. 17:31 connected the track repair worker clarification operator for [facility] with Dr. Juares for patient transfer eb consultation. 17:45 administrative approval given by Jamie Pettit/ [facility] Jamie will call back after faxing over the covid results and face sheet to [phone]. 21:21 No provider procedures requiring assistance completed. Patient transferred, IV remains zb in place. Administered Medications: 16:58 Drug: Cefepime 1 grams Route: IVPB; Rate: 200 ml/hr; Infused Over: 30 mins; Site: right zb antecubital; 17:20 Follow up: Response: No adverse reaction; IV Status: Completed infusion; IV Intake: 50mlzb 17:30 Drug: NS 0.9% 1000 ml Route: IV; Rate: 125 ml/hr; Site: right antecubital; zb 17:30 Follow up: Response: No adverse reaction; IV Status: Infusion continued upon transfer; zb IV Intake: 375ml 17:30 Drug: vancoMYCIN 1 grams Route: IVPB; Infused Over: 2 hrs; Site: right antecubital; zb 19:50 Follow up: Response: No adverse reaction; IV Status: Completed infusion; IV Intake: zb 250ml Intake: 17:20 IV: 50ml; Total: 50ml. zb 17:30 IV: 375ml; Total: 425ml. zb 19:50 IV: 250ml; Total: 675ml. zb Outcome: 17:34 Discharge ordered by . ma2 17:35 ER care complete, transfer ordered by . ma2 21:21 Transferred by ground EMS to [facility], Transfer form completed. zb 21:21 Condition: stable 21:21 Instructed on the need for transfer, Demonstrated understanding of follow-up care. 21:22 Patient left the ED. zb Signatures: Dispatcher [employer] EDAdelita Davies Mohammad, MD MD ma2 Lissa Kimble Cheryl, RN RN ca1 Brown, Zipporah, RN RN zb Corrections: (The following items were deleted from the chart) 20:11 18:30 Response: No adverse reaction; IV Status: Completed infusion; IV Intake: 50ml zb zb
--- NOTE | 2021-01-17 17:35 | EDPHYS ---
Physician Documentation [facility] Name: Daniele Guadarrama Age: 50 yrs Sex: Male : 1970 Arrival Date: 01/17/2021 Time: 15:14 Bed 18 Private MD: ED Physician Mendoza Juares HPI: 01/17 16:12 This 50 yrs old Male presents to ER via Ambulatory with complaints of Post ma2 Surgical Pain - swelling. 16:12 Onset: The symptoms/episode began/occurred gradually, 1 day(s) ago. Associated signs ma2 and symptoms: Pertinent negatives: dizziness, lower extremity pain, lightheadedness, shortness of breath, vomiting. Duration: The patient or guardian reports a single episode, that is still ongoing. Severity of pain: At its worst the pain was mild in the emergency department the pain is unchanged. The patient has not experienced similar symptoms in the past. had replacement of his icd-defibrillator [facility], here with chest wall swelling and mild pain x 1 day . Historical: - Allergies: 15:30 No Known Allergies; ca1 - PMHx: 15:30 Atrial Fib; CHF; SVT; thyroid CA; Thyroid problem; ca1 - PSHx: 15:30 defib; L shoulder repair; hip replacement; ca1 - Immunization history:: Flu vaccine is up to date. - Social history:: Smoking status: Patient reports the use of cigarette tobacco products, smokes one-half pack cigarettes per day, Patient uses alcohol, weekly. Patient/guardian denies using alcohol, street drugs, The patient lives with family. - Family history:: not pertinent. ROS: 16:12 Constitutional: Negative for fever, chills, and weight loss. ma2 16:12 All other systems are negative. Exam: 16:12 Constitutional: This is a well developed, well nourished patient who is awake, alert, ma2 and in no acute distress. ENT: Nares patent. No nasal discharge, no septal abnormalities noted. Tympanic membranes are normal and external auditory canals are clear. Oropharynx with no redness, swelling, or masses, exudates, or evidence of obstruction, uvula midline. Mucous membranes moist. Neck: Trachea midline, no thyromegaly or masses palpated, and no cervical lymphadenopathy. Supple, full range of motion without nuchal rigidity, or vertebral point tenderness. No Meningismus. Chest/axilla: left upper chest swelling 10x 10 cm with ++ fluctuence, tenderness and mild warmth over the ICD. surgical wound is dry. Normal chest wall appearance and motion. Nontender with no deformity. No lesions are appreciated. Cardiovascular: Regular rate and rhythm with a normal S1 and S2. No gallops, murmurs, or rubs. Normal PMI, no JVD. No pulse deficits. Respiratory: Lungs have equal breath sounds bilaterally, clear to auscultation and percussion. No rales, rhonchi or wheezes noted. No increased work of breathing, no retractions or nasal flaring. Abdomen/GI: Soft, non-tender, with normal bowel sounds. No distension or tympany. No guarding or rebound. No evidence of tenderness throughout. MS/ Extremity: Pulses equal, no cyanosis. Neurovascular intact. Full, normal range of motion. Neuro: Awake and alert, GCS 15, oriented to person, place, time, and situation. Cranial nerves II-XII grossly intact. Motor strength 5/5 in all extremities. Sensory grossly intact. Cerebellar exam normal. Normal gait. Vital Signs: 15:24 BP 140 / 109; Pulse 105; Resp 18 S; Temp 98.7(O); Pulse Ox 98% on R/A; Weight 74.84 kg ca1 (R); Height 5 ft. 10 in. (177.80 cm) (R); Pain 2/10; 17:08 BP 156 / 103; Pulse 102; Resp 16; Pulse Ox 100% on R/A; zb 18:17 BP 152 / 96; Pulse 93; Resp 16; Pulse Ox 100% on R/A; zb 19:15 BP 145 / 101; Pulse 99; Resp 16; Pulse Ox 100% on R/A; zb 20:10 BP 129 / 80; Pulse 95; Resp 15; Pulse Ox 98% on R/A; zb 15:24 Body Mass Index 23.67 (74.84 kg, 177.80 cm) ca1 MDM: 15:35 Patient medically screened. ma2 16:12 Differential diagnosis: Blunt Chest Trauma Chest Wall Contusion Chest Wall Injury ma2 Hemopericardium. Data reviewed: vital signs, nurses notes. Counseling: I had a detailed discussion with the patient and/or guardian regarding: the historical points, exam findings, and any diagnostic results supporting the discharge/admit diagnosis, the presence of at least one elevated blood pressure reading (>120/80) during this emergency department visit, the need for outpatient follow up. Response to treatment: the patient's symptoms have mildly improved after treatment. ED course: patient likely has chest wall hematoma vs abscess over ICD. will transfer [facility] to [facility] where he had the surgery done 10 days for continuity of care . 17:33 ED course: Accepted by dr. Mendoza. 01/17 15:36 Order name: Basic Metabolic Panel; Complete Time: 17:32 ma2 01/17 15:36 Order name: CBC with Diff; Complete Time: 17:32 ma2 01/17 15:36 Order name: LFT's; Complete Time: 17:32 01/17 15:36 Order name: Magnesium; Complete Time: 17:32 2 01/17 15:36 Order name: NT PRO-BNP; Complete Time: 17:32 ma2 01/17 15:36 Order name: PT-INR; Complete Time: 17:32 ma2 01/17 15:36 Order name: Troponin (emerg Dept Use Only); Complete Time: 17:32 ma2 01/17 15:36 Order name: XRAY Chest (1 view); Complete Time: 17:32 ma2 01/17 15:36 Order name: EKG; Complete Time: 15:37 ma2 01/17 17:55 Order name: SARS-COV-2 RT PCR EDIN 01/17 15:36 Order name: Cardiac monitoring; Complete Time: 16:58 ma2 01/17 15:36 Order name: EKG - Nurse/Tech; Complete Time: 16:58 ma2 01/17 15:36 Order name: IV Saline Lock; Complete Time: 16:58 ma2 01/17 15:36 Order name: Labs collected and sent; Complete Time: 16:58 ma2 01/17 15:36 Order name: O2 Per Protocol; Complete Time: 16:58 ma2 01/17 15:36 Order name: O2 Sat Monitoring; Complete Time: 16:58 ma2 Administered Medications: 16:58 Drug: Cefepime 1 grams Route: IVPB; Rate: 200 ml/hr; Infused Over: 30 mins; Site: right zb antecubital; 17:20 Follow up: Response: No adverse reaction; IV Status: Completed infusion; IV Intake: 50mlzb 17:30 Drug: NS 0.9% 1000 ml Route: IV; Rate: 125 ml/hr; Site: right antecubital; zb 17:30 Follow up: Response: No adverse reaction; IV Status: Infusion continued upon transfer; zb IV Intake: 375ml 17:30 Drug: vancoMYCIN 1 grams Route: IVPB; Infused Over: 2 hrs; Site: right antecubital; zb 19:50 Follow up: Response: No adverse reaction; IV Status: Completed infusion; IV Intake: zb 250ml Disposition: 01/17/21 17:35 Transfer ordered to Other Acute Care Facility. Diagnosis is Cutaneous abscess of chest wall. - Reason for transfer: Higher level of care. - Accepting physician is Dr. Gipson. - Condition is Stable. - Problem is new. - Symptoms are unchanged. Signatures: Dispatcher [employer] EDMS Mendoza Juares MD MD ma2 Apurva Beasley RN RN ca1 Brown, Zipporah, RN RN zb Corrections: (The following items were deleted from the chart) 17:15 16:56 CORONAVIRUS+MR.LAB.BRZ ordered. EDIN EDMS 17:34 17:34 01/17/2021 17:34 Discharged to Home. Impression: Cellulitis of chest wall - with ma2 abscess. Condition is Stable. Forms are Medication Reconciliation Form, Thank You Letter, Antibiotic Education, Prescription Opioid Use. Follow up: Private Physician; When: Tomorrow; Reason: If symptoms return, Continuance of care. ma2 21:22 17:35 01/17/2021 17:35 Transfer ordered to Other Acute Care Facility. Diagnosis is zb Cutaneous abscess of chest wall. Reason for transfer: Higher level of care. Accepting physician is Dr. Gipson. Condition is Stable. Problem is new. Symptoms are unchanged. ma2
[2021-01-18 00:25] VITALS: TEMP 98.7
[2021-01-18 00:31] VITALS: BP 129/80; O2SAT 98
== END 2021-01-17 21:22 ==
LOC: ER 15:09
DX: L02.213 Cutaneous abscess of chest wall (principal); Z20.822 Contact with and (suspected) exposure to COVID-19; F17.210 Nicotine dependence, cigarettes, uncomplicated; Z95.810 Presence of automatic (implantable) cardiac defibrillator; I48.91 Unspecified atrial fibrillation; I50.9 Heart failure, unspecified; Z85.850 Personal history of malignant neoplasm of thyroid; Z96.649 Presence of unspecified artificial hip joint
CPT/HCPCS: 85025; 80048; 36415; 83735; 85610; 80076; 84484; 83880; 71045; U0003; J3370; J0692; J7050; J7030; 93005; 96365; 96366; 96367; 99285

== ENCOUNTER 2021-04-03 15:27 | Emergency (ER) | payer OTHER ==
--- OUTSIDE RECORDS SUMMARY | 2021-04-03 15:31 | XMS REPORT | Continuity of Care Document ---
:1970 Author Organization [facility] t Address [address] [place] [address] Care Team Providers Name Role Phone Asked, Pcp Primary Care Physician Unavailable Sharon SERNA Attending Clinician MD SHARON Attending Clinician Unavailable Amanuel SERNA Attending Clinician Gadiel SERNA, V. Attending Clinician MD AMANUEL Attending Clinician Unavailable Raad HAQUE Attending Clinician Unavailable Ian OVIEDO Attending Clinician Unavailable SHARON Admitting Clinician Unavailable MD SHARON Admitting Clinician Unavailable AMANUEL Admitting Clinician Unavailable MD AMANUEL Admitting Clinician Unavailable Payers Payer Name Policy Type Policy Effective Date Expiration Date Sour ce Number MEDICAREMEDICARE PART [id number] 2013 Derrick White AND 00:00:00 [facility] [id number] [address] [facility] Problems Condition Condition Condition Status Onset Resolution Last Treating Co mments Source Name Details Category Date Date Treatment Clinician Date Hematoma Hematoma Disease Active [place] of of 01-18 Methodi implantabl implantabl 00:00: st e e 00 cardiovert cardiovert er-defibri er-defibri llator llator (ICD) (ICD) pocket pocket Encounter Encounter Disease Active Rafael ston due to due to 3-24 [facility] AICD at AICD at 00:00: st end of end of 00 battery battery life life Hypotensio Hypotensio Disease Active 2015-10 [place] n 1-10 Methodi 00:00: st 00 SOB SOB Disease Active 2015-10 [place] (shortness (shortness 1-08 Me thodi of breath) of breath) 00:00: st on on 00 exertion exertion Allergies, Adverse Reactions, Alerts This patient has no known allergies or adverse reactions. Social History Social Habit Start Date Stop Date Quantity Comments Source History of tobacco Cigarette Smoker Barry use [facility]alism Exposure to Not sure [place] SARS-CoV-2 (event) Method ist Cigarettes smoked 2021-02-02 2021-02-02 [place] current (pack per 00:00:00 00:00:[address] day) - Reported Tobacco use and 2021-02-02 2021-02-02 Never used [place] exposure 00:00:00 00:00:00 [employer]ism Alcohol intake 2021-02-02 2021-02-02 Current drinker of Derrick magallon 00:00:00 00:00:00 alcohol (finding) Method[facility] Tobacco Comment 2016-08-24 2016-08-24 3-6 CIGARETTES [place] 00:00:00 00:00:00 /DAY [employer]ism Alcohol Comment 2016-08-24 2016-08-24 3 X A WEEK [place] 00:00:00 00:00:00 OCCASIONALY Pent[employer]ism Sex [birth year] At [birth year] [place] 00:00:00 00:00:00 Pent[employer]ism Smoking Status Start Date Stop Date Source Current some day smoker 2021-02-02 00:00:00 Marcos Lanzaist Medications Ordered Filled Start Stop Current Ordering Indication Dosage Frequency Signature Comments Components Source Medication Medication Date Date Medication? Clinician (SIG) Name Name levothyroxi Yes 125ug QD Take 125 [place] ne 4-04 mcg by Methodi (SYNTHROID, 18:09: mouth st LEVOTHROID) 36 every 125 MCG morning. tablet aspirin Yes 81mg QD Take 81 mg [place] (ECOTRIN) 4-04 by mouth Method i 81 MG 18:09: daily. st enteric 36 coated tablet lisinopriL Yes 15mg QD Take 15 mg [place] (PRINIVIL) 4-04 by mouth Metho di 5 mg tablet 18:09: daily. st 36 minocycline No 100mg Q.5D Take 1 [place] (Minocin) 4-04 04-09 capsule Method i 100 MG 00:00: 23:59 ([address] capsule 00 :00 total) by mouth 2 (two) times a day for 5 days. lisinopriL 2020- No 10mg QD Take 10 mg Barry (PRINIVIL) 01-17-03 by mouth Meth karlos 10 mg 22:40: 00:[address] tablet 46 :00 minocycline 2020- No 100mg Q.5D Take 1 [place] magallon (Minocin) 01-07 capsule Method i 100 MG 00:00: 23:59 ([address] capsule 00 :00 total) by mouth 2 (two) times a day for 5 days. traMADoL 2020- No acute pain 50mg Q8H Take 1 Barry (Ultram) 50 01-07 tablet (50 M ethodi mg tablet 00:00: 23:59 mg total) st 00 :00 by mouth every 8 (eight) hours as needed for moderate pain for up to 3 days .acute pain. minocycline 2020- No 100mg Q.5D Take 1 Derrick magallon (Minocin) 01-07 capsule Method i 100 MG 00:00: 00:00 ([address] capsule 00 :00 total) by mouth 2 (two) times a day for 5 days. torsemide Yes Abnormal 10mg QD Take 1 Ho na[place] (DEMADEX) 3-03 findings on tablet (10 Methodi 10 MG 00:00: diagnostic mg total) s t tablet 00 imaging of by mouth heart and daily. coronary circulation metoprolol 2021- No 50mg QD Take 1 [place] succinate 12-17- tablet (50 Met hodi XL 00:00: 23:59 mg total) st (TOPROL-XL) 00 :00 by mouth 50 mg 24 hr daily. tablet torsemide 2020- No Abnormal 20mg QD Take 1 [place] (DEMADEX) 12-26 03-03 findings on tablet (20 Methodi 20 MG 00:00: 00:00 diagnostic mg total) st tablet 00 :00 imaging of by mouth heart and daily. coronary circulation spironolact Yes Abnormal 25mg QD Take 1 Barry one 3-10 findings on tablet (25 Me [place] (ALDACTONE) 00:00: diagnostic mg total) st 25 MG 00 imaging of by mouth tablet heart and daily. coronary circulation metoprolol 2020- No Abnormal 25mg Take 1 Barry tartrate 12-24 findings on tablet (25 Methodi (LOPRESSOR) 00:00: 00:00 diagnostic mg total) st 25 mg 00 :00 imaging of by mouth tablet heart and daily. coronary circulation sacubitriL- 2020- No Abnormal 1{tbl} Q.5D Take 1 [place] valsartan 12-24 findings on tablet by Methodi (ENTRESTO) 00:00: 00:[address] 24-26 mg 00 :00 imaging of (two) tablet per heart and times a tablet coronary day. circulation Vital Signs Vital Name Observation Time Observation Value Comments Source Systolic blood 2021-01-18 15:59:10 87 mm[Hg] Marcosto n Pentecostalism pressure Diastolic blood 2021-01-18 15:59:10 57 mm[Hg] Tammi on Pentecostalism pressure Heart rate 2021-01-18 15:59:10 87 /min Jhonny Allan Body temperature 2021-01-18 15:59:10 36.61 Birgit Marcos ton [facility]ism Respiratory rate 2021-01-18 15:59:10 18 /min Marcos ton [facility]ism Oxygen saturation in 2021-01-18 15:59:10 95 /min Jhonny Allan Arterial blood by Pulse oximetry Body height 2021-01-17 22:21:39 177.8 cm Jhonny Allan Body weight 2021-01-17 22:21:39 74.662 kg Jhonny Allan BMI 2021-01-17 22:21:39 23.62 kg/m2 Jhonny Allan Procedures Procedure Date / Time Performing Clinician Source Performed XR CHEST 1 VW PORTABLE 2021-01-18 08:08:47 Chari Davis COVID-19 QUALITATIVE PCR 2021-01-18 01:00:00 Chari Davis BLOOD CULTURE, AEROBIC & 2021-01-18 01:00:00 Chari Davis ANAEROBIC HC COMPLETE BLD COUNT 2021-01-18 01:00:00 Chari Davis W/AUTO DIFF PROTHROMBIN TIME WITH INR 2021-01-18 01:00:00 Chari Davis PARTIAL THROMBOPLASTIN 2021-01-18 01:00:00 Chari Davis TIME (PTT) COMPREHENSIVE METABOLIC 2021-01-18 01:00:00 Chari Davis Pentecostalism PANEL ESTIMATED GFR 2021-01-18 01:00:00 Jeffrey Herrera Met tk XR CHEST 1 VW PORTABLE 2021-01-07 13:15:00 AmanuelMichaela on Pentecostalism ECG PRE/POST OP 2021-01-07 12:18:36 Michaela Vital EP AICD GENERATOR EXPLANT 2021-01-07 11:46:44 AmanuelMichaela EP AICD IMPLANT SINGLE 2021-01-07 11:46:44 AmanuelMichaela on Pentecostalism DUAL BI VENT TYPE AND SCREEN 2021-01-07 08:27:00 AmanuelMichaela PROTHROMBIN TIME WITH INR 2021-01-05 12:56:00 Amanuel, Michaela Allan MAGNESIUM LEVEL 2021-01-05 12:56:00 AmanuelMichaela HC COMPLETE BLD COUNT 2021-01-05 12:56:00 Amanuel, Michaela Lanzaist W/AUTO DIFF COMPREHENSIVE METABOLIC 2021-01-05 12:56:00 AmanuelMichaela Pentecostalism PANEL ESTIMATED GFR 2021-01-05 12:56:00 Michaela Vital COVID-19 QUALITATIVE PCR 2021-01-05 12:25:00 Amanuel, Michaela davilan Pentecostalism ECG 12-LEAD 2020-12-17 13:09:33 Jeffrey Herrera Met tk TTE COMPLETE, W CONTRAST, 2020-12-17 09:52:39 Jeffrey Herrera W DOPPLER ([id number]) Plan of Care Planned Activity Planned Date Details Comments Source Future Scheduled 2021-05-17 INFLUENZA VACCINE Marilee Lanzaist Test 00:00:00 [code = INFLUENZA VACCINE] Future Scheduled 1990 Hepatitis C Jhonny Met tk Test 00:00:00 screening (procedure) [code = 227800234] Future Scheduled 1984 COVID-19 VACCINE (1) Rafael corrales [facility]ism Test 00:00:00 [code = COVID-19 VACCINE (1)] Encounters Start End Encounter Admission Attending Care Care Encounter Source Date/Time Date/Time Type Type Clinicians Facility Department ID 2021-01-17 2021-01-18 Outpatient [facility] [id number] [place] 00:00:00 00:00:[address] JE[address]Y [address] 2021-01-07 2021-01-07 Outpatient [facility] [id number] [place] 00:00:00 00:00:00 NADIM [address] 2021-01-05 2021-01-05 Outpatient [facility] [id number] [place] 00:00:00 00:00:00 NADIM [address] 2020-12-17 2020-12-17 Outpatient [facility] [id number] [place] 00:00:00 00:00:00 JEFFREY [address] 2020-12-17 2020-12-17 Outpatient [facility] [id number] [place] 00:00:00 00:00:00 JEFFREY [address] 2020-08-19 2020-08-19 Outpatient [facility] [id number] [facility] 00:00:00 00:00:00 [facility] 2019-12-25 2019-12-25 Outpatient [facility] [id number] [place] 00:00:00 00:00:00 JEFFREY [address] Results Test Description Test Time Test Comments Results Result [facility] e Comments XR Chest 1 Vw [facility] [address] 09:21:12 Incoming - 01/18/2021 9:24 AM CDT EXAMINATION: XR CHEST 1 VW PORTABLECLINICAL HISTORY: icd hematomaCOMPARISON: To a previous examination from 01/07/2021IMPRESSION:T ransvenous pacemaker/AICD is present. Overlying wires obscure detail.The heart is not enlarged.The lungs are clear.There is no evidence of pleural effusion, or pneumothorax.[id number] S05 SARS-CoV-2 (COVID-19) RNA [Presence] in Respiratory sp ecimen by 2021-01-18 05:40:52 TAVARES with probe detection Test Item Value Reference Range Interpretation Comme nts SARS-CoV-2 (COVID-19) RNA [Presence] in Respiratory Not detected No t-Detected specimen by TAVARES with probe detection (test code = 68955-7) Electrophysiology [id number] 17:09:46TITLE OF PROCEDURE:Defibrillator system upgrade.PREOPERATIVE DIAGNOSES:1. Nonischemic dilated cardiomyopathy.2. AICD battery exhaustion.POSTOPERATIVE DIAGNOSES:1. Nonischemic dilated cardiomyopathy.2. AICD battery exhaustion.PROCEDURES PERFORMED:1. Removal of single-chamber defibrillator.2. Debridement of calcified subcutaneous capsule less than 20 square cm.3. Insertion of high right atrial lead.4. Insertion of dual-chamber defibrillator.5. Intraoperative DFT testing of implantable defibrillator.6. 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 These implants were removed and subsequently his ejection fraction improved. Hehas been off his medications, only recently resumed, and his ejection fractionis back down to 25% to 29%. Hence, he comes now for AICD battery upgradebecause he has been complaining of tachy-palpitations defying specific diagnosisand we believe that an atrial lead will assist us in diagnosis and managementshould and if it recurs.PROCEDURE:The patient was taken to the EP lab in the fasting nonsedated drug-free state. Informed consent had been obtained and reconfirmed. Intravenous antibioticswere infused. Monitored anesthesia care was provided.The preexisting device was removed after local anesthesia was achieved with 1%Xylocaine solution. Subsequently, the pocket was debrided of a heavilycalcified dense capsule and the capsule was removed in its entirety. Subsequently, utilizing a left upper extremity venogram, access to the mid tolateral subclavian vein was achieved and utilizing standard [id number] andsheath technique the high right atrial lead was placed, deployed, tested, andsecured. Subsequently, the pocket was washed with copious amounts ofantibiotic-impregnated saline.Then, the new dual-chamber defibrillator was connected to the chronic RV lead,the new atrial lead, and lead slack were placed into a Medtronic Tyrxantibiotic-impregnated pouch. This was placed back in the pocket and the pocketwas closed in layers utilizing 0 Vicryl suture followed by INSORB hilton, skinadhesive, and Prineo skin dressing.COMPLICATIONS:None.FINDINGS:1. Estimated blood loss 5 mL.2. Total capsulectomy.3. The atrial lead is a Medtronic, Model 4076, Serial #[id number], measuredP-wave 2.6 millivolt, pacing threshold 0.5 volt, impedance 513 ohms.4. The chronic RV lead is a 6947, Serial #[id number], measured R-wave 7.3millivolt, pacing threshold 0.5, impedance 437 ohms.5. The explanted defibrillator is a Medtronic, Model C460KIO Protecta, Serial#[id number], date of insertion January 18, 2012.6. The new defibrillator is a Medtronic Evera, Model [id number], Serial#[id number].7. Ventricularfibrillation was induced utilizing T shock induction. Sensitivity was set at 1.2 millivolt. There was appropriate detection withoutdropout and termination at 20 joules delivered energy, 46 ohms high voltageimpedance back to sinus rhythm. He awoke without sequela.CONCLUSION:Successful single-chamber upgrade to dual-chamber ICD due to ICD generatorbattery exhaustion and need for atrial lead for SVT di scrimination.RECOMMENDATIONS:1. Return to recovery.2. Chest x-ray.3. Recheck ICD parameters in 6 to 8 hours and discharged home thereafter.[facility] ECG Pre/Post [id number] 09:38:05 Test Item Value Reference Range Interpretation Comments Ventricular rate (test 67 code = 253) Atrial rate (test code = 67 255) RI interval (test code = 220 266) QRSD interval (test code 94 = 260) QT interval (test code = 428 264) QTC interval (test code 452 = 265) P axis 1 (test code = 63 267) QRS axis 1 (test code = -13 268) T wave axis (test code = 96 270) EKG impression (test Sinus rhythm with 1st code = 273) degree AV block-Inferior infarct , age undetermined-T wave abnormality, consider lateral ischemia-Abnormal ECG- Jhonny [id number] (COVID-19) RNA [Presence] in Respiratory specimen by TAVARES with probe [id number] 22:22:18 Test Item Value Reference Range Interpretation Comments SARS-CoV-2 (COVID-19) RNA Not detected Not-Detected [Presence] in Respiratory specimen by TAVARES with probe detection (test code = 62196-1) ECG 12 [id number] 04:56:45 Test Item Value Reference Range Interpretation Comments Ventricular rate (test 69 code = 253) Atrial rate (test code = 69 255) RI interval (test code = 196 266) QRSD interval (test code 94 = 260) QT interval (test code = 420 264) QTC interval (test code 450 = 265) P axis 1 (test code = 59 267) QRS axis 1 (test code = 23 268) T wave axis (test code = 216 270) EKG impression (test Normal sinus code = 273) rhythm-Low voltage QRS-T wave abnormality, consider lateral ischemia-Electronical ly Signed By Clay Vital MD ([id number]) on 12/18/2020 4:56:40 AM Jhonny Allan
[2021-04-03 18:58] LABS: Urine Blood Negative (Negative); Urine Glucose Negative (Negative); Urine Protein 1+ (Negative); Urine Specific Gravity >=1.030 (1.005-1.030)
[2021-04-03] MEDS ORDERED: NA CHLORIDE 0.9% 500 ML ONE (19:13)
[2021-04-03 19:16] LABS: Basophils % 0.8 % (0-1.3); Hematocrit 39.6 % (39.6-49.0); Lymphocytes % 14.6 % (15.3-44.8); MPV 7.3 fL (7.6-11.3); RBC Red Blood Cell Count 4.24 M/uL (4.33-5.43)
[2021-04-03 19:32] LABS: Albumin 2.9 g/dL (3.4-5.0); Bilirubin Direct 0.1 mg/dL (0-0.2); Bilirubin Total 0.4 mg/dL (0.2-1.0); Potassium 3.9 mmol/L (3.5-5.1); Protein, Total 8.3 g/dL (6.4-8.2)
[2021-04-03 19:55] LABS: Urine Bacteria <20 /HPF (NONE SEEN); Urine RBC <5 /HPF (NONE SEEN)
[2021-04-03 19:56] LABS: Urine Mucus 3+ /HPF (NONE SEEN)
--- NOTE | 2021-04-03 20:38 | RAD REPORT ---
EXAM DESCRIPTION: CT - Abdomen Pelvis W Contrast - 04/03/2021 8:11 pm CLINICAL HISTORY: ABD PAIN, COVID positive COMPARISON: Abdomen Wo Contrast dated 03/29/2018 TECHNIQUE: Biphasic, helical CT imaging of the abdomen and pelvis was performed following 100 ml non -ionic IV contrast. No oral contrast administered. All CT scans are performed using dose optimization technique as appropriate and may include automated exposure control or mA/KV adjustment according to patient size. FINDINGS: Interstitial and patchy alveolar opacities are present in the lower lung lerma compatible with the provided history of COVID-19 infection. Minimal pleural effusions are present. The liver, spleen, and pancreas show no suspicious findings. Gallbladder and biliary tree are also wi thout suspicious finding. Symmetric renal function is seen with no hydronephrosis or suspicious renal mass. No pyelonephritis o r acute parenchymal process. A 2 centimeter low-density area in the lateral mid left kidney is probab ly a cyst. Aggressive renal process is not suspected. No adrenal abnormalities. Urinary bladder asses sment and prostate gland assessment are limited due to spray artifact from left hip prosthesis. Pelvi c floor detail is limited overall. No dilated bowel loops or bowel wall thickening. No appendicitis or other acute bowel process identif iable. No free air, free fluid or inflammatory stranding. No hernia, mass or bulky lymphadenopathy. No suspicious bony findings. IMPRESSION: Mild COVID-19 pneumonia findings are evident in each lower lung field. CT abdomen and pelvis imaging shows no acute finding.
--- NOTE | 2021-04-03 20:55 | ER ---
Nurse's Notes [facility] Name: Daniele Guadarrama Age: 50 yrs Sex: Male : 1970 Arrival Date: 04/03/2021 Time: 15:32 Bed 18 Private MD: Diagnosis: Generalized abdominal pain Presentation: 04/03 15:44 Chief complaint: Patient states: Covid + since 03-20-21. Not eating for 2 weeks, weak, ll1 fatigue. L flank pain started today. Coronavirus screen: Client denies travel out of the [place] in the last 14 days. congestion, cough unrelated to allergies, difficulty breathing, fatigue, fever, shortness of breath, Client presents with at least one sign or symptom that may indicate coronavirus-19. Standard/surgical mask placed on the client. Client reports previous positive COVID test result. Ebola Screen: Patient denies travel to an Ebola-affected area in the 21 days before illness onset. Initial Sepsis Screen: Does the patient meet any 2 criteria? No. Patient's initial sepsis screen is negative. Does the patient have a suspected source of infection? Yes: Acute abdominal pain. Risk Assessment: Do you want to hurt yourself or someone else? Patient reports no desire to harm self or others. Onset of symptoms was March 20, 2021. 15:44 Method Of Arrival: Ambulatory ll1 15:44 Acuity: TAVARES 3 ll1 Historical: - Allergies: 15:47 No Known Drug Allergies; ll1 - PMHx: 15:47 Atrial Fib; CHF; SVT; thyroid CA; Thyroid problem; ll1 - PSHx: 15:47 defib; L shoulder repair; hip replacement; ll1 - Immunization history:: Flu vaccine is up to date. - Social history:: Smoking status: Patient/guardian denies using tobacco, Stopped _ months ago 1. Screenin:30 Abuse screen: Denies threats or abuse. Denies injuries from another. Nutritional ca1 screening: No deficits noted. Tuberculosis screening: No symptoms or risk factors identified. Fall Risk IV access (20 points). Assessment: 17:30 General: Appears in no apparent distress. comfortable, Behavior is calm, cooperative, ca1 appropriate for age. Pain: Complains of pain in left lower quadrant Pain radiates to left low back Pain currently is 4 out of 10 on a pain scale. at worst was 9 out of 10 on a pain scale. Pain began this morning. Neuro: Level of Consciousness is awake, alert, obeys commands, Oriented to person, place, time, situation. Cardiovascular: Heart tones S1 S2 present Capillary refill < 3 seconds Patient's skin is warm and dry. Rhythm is sinus rhythm. Respiratory: Airway is patent Respiratory effort is even, unlabored, Respiratory pattern is regular, symmetrical, Breath sounds are clear bilaterally. GI: Abdomen is flat, non-distended, Bowel sounds present X 4 quads. Abd is soft X 4 quads Abdomen is tender to palpation in right lower quadrant. : No signs and/or symptoms were reported regarding the genitourinary system. EENT: No signs and/or symptoms were reported regarding the EENT system. Derm: Skin is intact, is healthy with good turgor, Skin is pink, warm \T\ dry. Musculoskeletal: Circulation, motion, and sensation intact. Capillary refill < 3 seconds. 18:30 Reassessment: Patient appears in no apparent distress at this time. Patient and/or ca1 family updated on plan of care and expected duration. Pain level reassessed. Patient is alert, oriented x 3, equal unlabored respirations, skin warm/dry/pink. 19:30 General: Appears in no apparent distress. comfortable, Behavior is calm, cooperative, rr5 appropriate for age. 19:30 Neuro: Level of Consciousness is awake, alert, obeys commands, Oriented to person, rr5 place, time. Cardiovascular: Capillary refill < 3 seconds Patient's skin is warm and dry. Respiratory: Airway is patent Respiratory effort is even, unlabored, Respiratory pattern is regular, symmetrical. 21:00 Reassessment: Patient appears in no apparent distress at this time. Patient is alert, rr5 oriented x 3, equal unlabored respirations, skin warm/dry/pink. discharge instruction given and explained without complaints made. Vital Signs: 15:44 BP 108 / 96; Pulse 86; Resp 17; Temp 98.5; Pulse Ox 100% ; Weight 77.11 kg; Height 5 ll1 ft. 10 in. (177.80 cm); Pain 2/10; 19:00 BP 133 / 92; Pulse 69; Resp 17; Pulse Ox 97% on R/A; mh5 20:00 BP 137 / 89; Pulse 65; Resp 19; Pulse Ox 100% ; rr5 21:00 BP 144 / 75; Pulse 60; Resp 16; Pulse Ox 98% ; rr5 15:44 Body Mass Index 24.39 (77.11 kg, 177.80 cm) 1 ED Course: 15:32 Patient arrived in ED. 15:46 Triage completed. ll1 15:47 Arm band placed on. ll1 17:13 Patient placed in an exam room, on a stretcher. 17:14 Apurva Beasley, RN is Primary Nurse. ca1 17:26 Tyrese Carr PA is PHCP. jr8 17:26 Mendoza Juares MD is Attending Physician. jr8 18:58 Basic Metabolic Panel Sent. 5 18:58 Urine Microscopic Only Sent. mh5 18:58 Basic Metabolic Panel Sent. 5 18:58 CBC with Diff Sent. mh5 18:58 Hepatic Function Sent. mh5 18:58 Lipase Sent. 5 18:59 Patient has correct armband on for positive identification. Bed in low position. [facility] light in reach. Side rails up X 1. Warm blanket given. Pulse ox on. NIBP on. 18:59 Initial lab(s) drawn, by ne, sent to lab. Urine collected: clean catch specimen, rodolfo mh5 colored. Inserted saline lock: 20 gauge in left antecubital area, using aseptic technique. Blood collected. 20:11 CT Abd/Pelvis - IV Contrast Only In Process Unspecified. EDMS Administered Medications: 18:22 Not Given (Physician Discretion): NS 0.9% 1000 ml IV at 1000 ml once 8 18:55 Drug: NS 0.9% 500 ml Route: IV; Rate: bolus; Site: left antecubital; ca1 19:40 Follow up: Response: No adverse reaction; IV Status: Completed infusion; IV Intake: rr5 500ml Intake: 19:40 IV: 500ml; Total: 500ml. rr5 Outcome: 20:54 Discharge ordered by . jr8 21:04 Patient left the ED. rr5 Signatures: Dispatcher [employer] EDMS Zeinab Blake RN RN Tyrese aCrr PA PA 8 Lo Murillo 5 Kashmir Torres RN RN rr5 Apurva Beasley RN RN ca1 Edward Oliveros RN RN 1 Montanez, Natividad wm
--- NOTE | 2021-04-03 20:55 | EDPHYS ---
Physician Documentation [facility] Name: Daniele Guadarrama Age: 50 yrs Sex: Male : 1970 Arrival Date: 04/03/2021 Time: 15:32 Bed 18 Private MD: ED Physician Mendoza Juares HPI: 04/03 19:18 This 50 yrs old Male presents to ER via Ambulatory with complaints of jr8 Abdominal and flank pain. 19:18 The patient presents with abdominal pain in the left upper quadrant, left flank. Onset: jr8 The symptoms/episode began/occurred acutely, today. The symptoms do not radiate. Associated signs and symptoms: Pertinent positives: nausea. The symptoms are described as stabbing. Modifying factors: The symptoms are alleviated by nothing, the symptoms are aggravated by nothing. Severity of pain: At its worst the pain was moderate in the emergency department the pain is unchanged. The patient has not experienced similar symptoms in the past. The patient has not recently seen a physician. Historical: - Allergies: 15:47 No Known Drug Allergies; ll1 - PMHx: 15:47 Atrial Fib; CHF; SVT; thyroid CA; Thyroid problem; ll1 - PSHx: 15:47 defib; L shoulder repair; hip replacement; ll1 - Immunization history:: Flu vaccine is up to date. - Social history:: Smoking status: Patient/guardian denies using tobacco, Stopped _ months ago 1. ROS: 19:18 Eyes: Negative for injury, pain, redness, and discharge, ENT: Negative for injury, jr8 pain, and discharge, Neck: Negative for injury, pain, and swelling, Cardiovascular: Negative for chest pain, palpitations, and edema, Respiratory: Negative for shortness of breath, cough, wheezing, and pleuritic chest pain, MS/Extremity: Negative for injury and deformity, Skin: Negative for injury, rash, and discoloration, Neuro: Negative for headache, weakness, numbness, tingling, and seizure. 19:18 Abdomen/GI: Positive for abdominal pain, nausea, Negative for vomiting, diarrhea, constipation, abdominal cramps, abdominal distension. 19:18 Back: Positive for flank pain, on the left. Exam: 20:45 Eyes: Pupils equal round and reactive to light, extra-ocular motions intact. Lids and jr8 lashes normal. Conjunctiva and sclera are non-icteric and not injected. Cornea within normal limits. Periorbital areas with no swelling, redness, or edema. ENT: Nares patent. No nasal discharge, no septal abnormalities noted. Tympanic membranes are normal and external auditory canals are clear. Oropharynx with no redness, swelling, or masses, exudates, or evidence of obstruction, uvula midline. Mucous membranes moist. Neck: Trachea midline, no thyromegaly or masses palpated, and no cervical lymphadenopathy. Supple, full range of motion without nuchal rigidity, or vertebral point tenderness. No Meningismus. Cardiovascular: Regular rate and rhythm with a normal S1 and S2. No gallops, murmurs, or rubs. Normal PMI, no JVD. No pulse deficits. Respiratory: Lungs have equal breath sounds bilaterally, clear to auscultation and percussion. No rales, rhonchi or wheezes noted. No increased work of breathing, no retractions or nasal flaring. Back: No spinal tenderness. No costovertebral tenderness. Full range of motion. Skin: Warm, dry with normal turgor. Normal color with no rashes, no lesions, and no evidence of cellulitis. MS/ Extremity: Pulses equal, no cyanosis. Neurovascular intact. Full, normal range of motion. Neuro: Awake and alert, GCS 15, oriented to person, place, time, and situation. Cranial nerves II-XII grossly intact. Motor strength 5/5 in all extremities. Sensory grossly intact. Cerebellar exam normal. Normal gait. 20:45 Abdomen/GI: Inspection: abdomen appears normal, Bowel sounds: active, all quadrants, Palpation: soft, in all quadrants, mild abdominal tenderness, in the anterior aspect of left lateral abdomen and left upper quadrant, mass, is not appreciated, rebound tenderness, is not appreciated, voluntary guarding, is not appreciated, involuntary guarding, is not appreciated, no appreciated organomegaly, Indicators: McBurney's point is not tender, Dumont's sign is negative, Rovsing's sign is negative, Liver: tenderness, is not appreciated. Vital Signs: 15:44 BP 108 / 96; Pulse 86; Resp 17; Temp 98.5; Pulse Ox 100% ; Weight 77.11 kg; Height 5 ll1 ft. 10 in. (177.80 cm); Pain 2/10; 19:00 BP 133 / 92; Pulse 69; Resp 17; Pulse Ox 97% on R/A; mh5 20:00 BP 137 / 89; Pulse 65; Resp 19; Pulse Ox 100% ; rr5 21:00 BP 144 / 75; Pulse 60; Resp 16; Pulse Ox 98% ; rr5 15:44 Body Mass Index 24.39 (77.11 kg, 177.80 cm) ll1 MDM: 17:26 Patient medically screened. jr8 20:45 Data reviewed: vital signs, nurses notes, lab test result(s), radiologic studies, CT jr8 scan. Data interpreted: Pulse oximetry: on room air is 97 %. Interpretation: normal. Counseling: I had a detailed discussion with the patient and/or guardian regarding: the historical points, exam findings, and any diagnostic results supporting the discharge/admit diagnosis, lab results, radiology results, the need for outpatient follow up, a family practitioner, to return to the emergency department if symptoms worsen or persist or if there are any questions or concerns that arise at home. 20:53 Special discussion: Based on the patient's Hx, exam, and Dx evaluation, there is no [facility] indication for emergent surgery or inpatient Tx. It is understood by the patient/guardian that if the Sx's persist or worsen they need to return immediately for re-evaluation. 04/03 18:21 Order name: Basic Metabolic Panel [facility] 04/03 18:21 Order name: CBC with Diff; Complete Time: 19:31 [facility] 04/03 18:21 Order name: Hepatic Function; Complete Time: 19:48 [facility] 04/03 18:21 Order name: Lipase; Complete Time: 19:48 [facility] 04/03 18:22 Order name: Urine Microscopic Only; Complete Time: 20:10 [facility] 04/03 18:22 Order name: Basic Metabolic Panel; Complete Time: 19:48 [facility] 04/03 18:21 Order name: IV Saline Lock; Complete Time: 18:56 [facility] 04/03 18:21 Order name: Labs collected and sent; Complete Time: 18:56 [facility] 04/03 18:22 Order name: Urine Dipstick-Ancillary (obtain specimen); Complete Time: 18:58 [facility] 04/03 18:58 Order name: Urine Dipstick-Ancillary; Complete Time: 19:06 EDMS 04/03 19:49 Order name: CT Abd/Pelvis - IV Contrast Only; Complete Time: 20:41 jr8 Administered Medications: 18:22 Not Given (Physician Discretion): NS 0.9% 1000 ml IV at 1000 ml once jr8 18:55 Drug: NS 0.9% 500 ml Route: IV; Rate: bolus; Site: left antecubital; ca1 19:40 Follow up: Response: No adverse reaction; IV Status: Completed infusion; IV Intake: rr5 500ml Disposition: 04/04 14:42 Co-signature as Attending Physician, Mendoza Juares MD. ma2 Disposition: 04/03/21 20:54 Discharged to Home. Impression: Generalized abdominal pain. - Condition is Stable. - Discharge Instructions: Abdominal Pain, Adult. - Prescriptions for Bentyl 20 mg Oral Tablet - take 1 tablet by ORAL route every 6 hours As needed; 20 tablet. Zofran 4 mg Oral Tablet - take 1 tablet by ORAL route every 12 hours As needed; 20 tablet. - Medication Reconciliation Form, Thank You Letter, Antibiotic Education, Prescription Opioid Use, Work release form form. - Follow up: Private Physician; When: 2 - 3 days; Reason: Recheck today's complaints, Continuance of care, Re-evaluation by your physician. - Problem is new. - Symptoms have improved. Signatures: Dispatcher [employer] EDMS Tyrese Carr PA PA jr8 Mendoza Juares MD MD ma2 Kashmir Torres RN RN rr5 Apurva Beasley RN RN ca1 Edward Oliveros RN RN ll1 Corrections: (The following items were deleted from the chart) 04/03 21:04 20:54 04/03/2021 20:54 Discharged to Home. Impression: Generalized abdominal pain. rr5 Condition is Stable. Forms are Medication Reconciliation Form, Thank You Letter, Antibiotic Education, Prescription Opioid Use. Follow up: Private Physician; When: 2 - 3 days; Reason: Recheck today's complaints, Continuance of care, Re-evaluation by your physician. Problem is new. Symptoms have improved. jr8
[2021-04-03 21:15] VITALS: TEMP 98.5
[2021-04-03 21:21] VITALS: BP 144/75; O2SAT 98
== END 2021-04-03 21:04 | disposition home or self-care (01) ==
LOC: ER 15:27
DX: R10.84 Generalized abdominal pain (principal); Z87.891 Personal history of nicotine dependence; I48.91 Unspecified atrial fibrillation; I50.9 Heart failure, unspecified; C73 Malignant neoplasm of thyroid gland; Z96.649 Presence of unspecified artificial hip joint
CPT/HCPCS: 85025; 80048; 36415; 80076; 83690; 74177; Q9967; J7040; 81003; 81015

== ENCOUNTER 2021-04-26 08:00 | Emergency (ER) | payer OTHER ==
--- OUTSIDE RECORDS SUMMARY | 2021-04-26 08:02 | XMS REPORT | Continuity of Care Document ---
:1970 Author Organization [facility] t Address [address] [place] [address] Care Team Providers Name Role Phone Asked, [...] Expiration Date Sour ce Number MEDICAREMEDICARE PART [id number] 2013 Derrick White AND 00:00:00 Judaism [id number] [place] Problems Condition Condition Condition Status Onset Resolution [...] st 00 SOB SOB Disease Active 2015-10 Kermit (shortness (shortness 1-08 Me thodi of breath) of breath) 00:00: st on on 00 exertion exertion Allergies, Adverse Reactions, Alerts This patient has no known allergies or adverse reactions. Social History Social Habit Start Date Stop Date Quantity Comments Source History of tobacco Cigarette Smoker Barry use Judaism Exposure to Not sure Kermit SARS-CoV-2 (event) Method ist Cigarettes smoked 2021-02-02 2021-02-02 [place] current (pack per 00:00:00 00:00:[address] day) - Reported Tobacco use and 2021-02-02 2021-02-02 Never used Kermit exposure 00:00:00 00:00:00 Judaism Alcohol intake 2021-02-02 2021-02-02 Current drinker of Derrick magallon 00:00:00 00:00:00 alcohol (finding) Methodi Tobacco Comment 2016-08-24 2016-08-24 3-6 CIGARETTES [place] on 00:00:00 00:00:00 /DAY Judaism Alcohol Comment 2016-08-24 2016-08-24 3 X A WEEK Kermit 00:00:00 00:00:00 OCCASIONALY Judaism Sex [birth year] At [birth year] Kermit 00:00:00 00:00:00 Judaism Smoking Status Start Date Stop Date Source [...] metoprolol 2020- No Abnormal 25mg Take 1 Kermit tartrate 12-24 findings on tablet (25 Methodi (LOPRESSOR) 00:00: 00:00 diagnostic mg total) st 25 mg 00 :00 imaging of by mouth tablet heart and daily. coronary circulation sacubitriL- 2020- No Abnormal 1{tbl} Q.5D Take 1 Kermit valsartan 12-24 findings on tablet by Methodi (ENTRESTO) 00:00: 00:[address] 24-26 mg 00 :00 imaging of (two) tablet per heart and times a tablet coronary day. circulation Vital Signs Vital Name Observation Time Observation Value Comments Source Systolic blood 2021-01-18 15:59:10 87 mm[Hg] Marcosto n Judaism pressure Diastolic blood 2021-01-18 15:59:10 57 mm[Hg] Tammi on Judaism pressure Heart rate 2021-01-18 15:59:10 87 /min Jhonny Allan Body temperature 2021-01-18 15:59:10 36.61 Birgit Marcos Allan Respiratory rate 2021-01-18 15:59:10 18 /min Marcos Allan Oxygen saturation in 2021-01-18 15:59:10 95 /min Jhonny Allan Arterial blood by Pulse oximetry Body height 2021-01-17 22:21:39 177.8 cm Jhonny Allan Body weight 2021-01-17 22:21:39 74.662 kg Jhonny Allan BMI 2021-01-17 22:21:39 23.62 kg/m2 Jhonny Allan Procedures Procedure Date / Time Performing Clinician Source Performed XR CHEST 1 VW PORTABLE 2021-01-18 08:08:47 Chari Davis COVID-19 QUALITATIVE 2021-01-18 01:00:00 Chari Davis RT-PCR BLOOD CULTURE, AEROBIC & 2021-01-18 01:00:00 Chari Davis ANAEROBIC HC COMPLETE BLD COUNT 2021-01-18 01:00:00 Chari Davis W/AUTO DIFF PROTHROMBIN TIME WITH INR 2021-01-18 01:00:00 Chari Davis PARTIAL THROMBOPLASTIN 2021-01-18 01:00:00 Chari aDvis TIME (PTT) COMPREHENSIVE METABOLIC 2021-01-18 01:00:00 Chari Davis PANEL ESTIMATED GFR 2021-01-18 01:00:00 Jeffrey Herrera Met tk XR CHEST 1 VW PORTABLE 2021-01-07 13:15:00 AmanuelMichaela on Judaism ECG PRE/POST OP 2021-01-07 12:18:36 Michaela Vital EP AICD GENERATOR EXPLANT 2021-01-07 11:46:44 AmanuelMichaela EP AICD IMPLANT SINGLE 2021-01-07 11:46:44 Michaela Vital on Judaism DUAL BI VENT TYPE AND SCREEN 2021-01-07 08:27:00 Michaela Vital PROTHROMBIN TIME WITH INR 2021-01-05 12:56:00 AmanuelMichaela MAGNESIUM LEVEL 2021-01-05 12:56:00 Michaela Vital HC COMPLETE BLD COUNT 2021-01-05 12:56:00 Michaela Vital W/AUTO DIFF COMPREHENSIVE METABOLIC 2021-01-05 12:56:00 Michaela Vital Judaism PANEL ESTIMATED GFR 2021-01-05 12:56:00 Michaela Vital COVID-19 QUALITATIVE 2021-01-05 12:25:00 Michaela Vital RT-PCR ECG 12-LEAD 2020-12-17 13:09:33 Jeffrey Herrera Met tk TTE COMPLETE, W CONTRAST, 2020-12-17 09:52:39 Jeffrey Herrera W DOPPLER ([id number]) Plan of Care Planned Activity Planned Date Details Comments Source Future Scheduled 2021-05-17 INFLUENZA VACCINE Marilee Allan Test 00:00:00 [code = INFLUENZA VACCINE] Future Scheduled 1990 Hepatitis C Jhonny Met tk Test 00:00:00 screening (procedure) [code = 813956818] Future Scheduled 1984 COVID-19 VACCINE (1) Rafael corrales Judaism Test 00:00:00 [code = COVID-19 VACCINE (1)] Encounters Start End Encounter Admission Attending Care Care Encounter Source Date/Time Date/Time Type Type Clinicians Facility Department ID 2021-01-17 2021-01-18 Outpatient [place] [id number] [place]ermit 00:00:00 00:00:00 JEFFREY [address] 2021-01-07 2021-01-07 Outpatient [facility] [id number] [place] 00:00:00 00:00:00 NADIM [address] 2021-01-05 2021-01-05 Outpatient [facility] [id number] [place] 00:00:00 00:00:00 NADIM [address] 2020-12-17 2020-12-17 Outpatient [facility] [id number] [place]it 00:00:00 00:00:00 JEFFREY [address] 2020-12-17 2020-12-17 Outpatient [facility] [id number] [place] 00:00:00 00:00:00 JEFFREY [address] 2020-08-19 2020-08-19 Outpatient [facility] [id number] [facility] 00[facility]00[facility]00 [facility]00:00 [facility] 2019-12-25 2019-12-25 Outpatient [facility] [id number] [place] 00:00:00 00:00:00 JEFFREY [address] Results Test Description Test Time Test Comments Results Result Sour e Comments XR Chest 1 Vw [facility] [address] 09:21:12 Incoming [...] TAVARES with probe detection (test code = 05833-8) Electrophysiology [id number] 17:09:46TITLE OF PROCEDURE:Defibrillator system upgrade.PREOPERATIVE DIAGNOSES:1. Nonischemic [...] subclavian vein was achieved and utilizing standard [id number] andsheath technique the high right atrial lead [...] lead is a Medtronic, Model 4076, Serial #[id number], measuredP-wave 2.6 millivolt, pacing threshold 0.5 volt, impedance 513 ohms.4. The chronic RV lead is a 6947, Serial #[id number], measured R-wave 7.3millivolt, pacing threshold 0.5, impedance 437 ohms.5. The explanted defibrillator is a Medtronic, Model F750UTW Protecta, Serial#[id number], date of insertion January 18, 2012.6. The new defibrillator is a Medtronic Evera, Model [id number], Serial#[id number].7. Ventricularfibrillation was induced utilizing T shock induction. [...] 6 to 8 hours and discharged home thereafter.Jhonny Allan ECG Pre/Post [id number] 09:38:05 Test Item Value Reference Range Interpretation Comments Ventricular rate (test 67 code = 253) Atrial rate (test code = 67 255) PA interval (test code = 220 266) QRSD [...] wave abnormality, consider lateral ischemia-Abnormal ECG- Jhonny CornejoRftoedeheWSWF-CvY-8 (COVID-19) RNA [Presence] in Respiratory specimen by TAVARES with probe [id number] 22:22:18 Test Item Value Reference Range Interpretation Comments SARS-CoV-2 (COVID-19) RNA Not detected Not-Detected [Presence] in Respiratory specimen by TAVARES with probe detection (test code = 80733-0) ECG 12 [id number] 04:56:45 Test Item Value Reference Range Interpretation Comments Ventricular rate (test 69 code = 253) Atrial rate (test code = 69 255) PA interval (test code = 196 266) QRSD [...] ischemia-Electronical ly Signed By Clay Vital MD ([id number]) on 12/18/2020 4:56:40 AM Jhonny Allan
--- NOTE | 2021-04-26 10:06 | RAD REPORT ---
EXAM DESCRIPTION: Jhonatan Fernando And Precious (2 Views)04/26/2021 9:03 am CLINICAL HISTORY: Shortness of breath COMPARISON: January 2021 FINDINGS: The lungs appear clear of acute infiltrate. The heart is normal size. Pacemaker leads in place IMPRESSION: No acute abnormalities displayed
--- NOTE | 2021-04-26 10:07 | RAD REPORT ---
EXAM DESCRIPTION: RAD - Knee Right 3 View - 04/26/2021 9:03 am CLINICAL HISTORY: Right knee pain FINDINGS: No fracture or dislocation is seen. Soft tissue swelling. Small joint effusion
--- NOTE | 2021-04-26 11:30 | RAD REPORT ---
EXAM DESCRIPTION: USExtremity Venous Uni Ltd04/26/2021 10:37 am CLINICAL HISTORY: Right leg swelling. COMPARISON: None. FINDINGS: Right common femoral, superficial femoral, popliteal and right posterior tibial veins are compressible and demonstrate augmentation. Doppler demonstrates good flow. IMPRESSION: No evidence of deep venous thrombosis involving the right lower extremity.
--- NOTE | 2021-04-26 11:34 | ER ---
Nurse's Notes [facility] Name: Daniele Guadarrama Age: 50 yrs Sex: Male : 1970 Arrival Date: 04/26/2021 Time: 08:03 Bed 7 Private MD: Diagnosis: Pain in right knee;Dyspnea Presentation: 04/26 08:18 Chief complaint: Patient states: right knee swelling and SOB. aa5 08:18 Coronavirus screen: The client reports previous COVID testing was negative. Ebola aa5 Screen: Patient negative for fever greater than or equal to 101.5 degrees Fahrenheit, and additional compatible Ebola Virus Disease symptoms. Initial Sepsis Screen: Does the patient meet any 2 criteria? No. Patient's initial sepsis screen is negative. Does the patient have a suspected source of infection? No. Patient's initial sepsis screen is negative. Risk Assessment: Do you want to hurt yourself or someone else? Patient reports no desire to harm self or others. Onset of symptoms was April 2021. 08:18 Acuity: TAVARES 3 aa5 08:18 Method Of Arrival: Ambulatory aa5 Historical: - Allergies: 08:21 No Known Allergies; aa5 - PMHx: 08:21 Atrial Fib; CHF; SVT; thyroid CA; Thyroid problem; aa5 - PSHx: 08:21 Defibrillator; Left hip replacement; left shoulder; aa5 - Immunization history:: Adult Immunizations up to date, Client reports having NOT received the Covid vaccine. - Social history:: Smoking status: Patient reports the use of cigarette tobacco products, denies chronic smoking, but will smoke occasionally. Screenin:38 Abuse screen: Denies threats or abuse. Denies injuries from another. Nutritional jl7 screening: No deficits noted. Tuberculosis screening: No symptoms or risk factors identified. Fall Risk None identified. Assessment: 08:38 General: Appears in no apparent distress. uncomfortable, Behavior is calm, cooperative, jl7 appropriate for age. Pain: Complains of pain in right knee Pain currently is 1 out of 10 on a pain scale. Neuro: Level of Consciousness is awake, alert, obeys commands, Oriented to person, place, time, situation. Cardiovascular: Rhythm is regular. Respiratory: Airway is patent Respiratory effort is even, unlabored, Respiratory pattern is regular, symmetrical, Breath sounds are clear bilaterally. Derm: Skin is pink, warm \T\ dry. Musculoskeletal: Swelling present in right knee. Vital Signs: 08:18 BP 112 / 79; Pulse 84; Resp 16 S; Temp 98.0(TE); Pulse Ox 99% on R/A; aa5 10:17 BP 124 / 87; Pulse 71; Resp 15; Pulse Ox 99% ; jl7 ED Course: 08:03 Patient arrived in ED. as 08:13 Mahsa Mcfarlane [facility]NP-C [facility]. kb 08:13 Valeriy Barnard MD is Attending Physician. kb 08:20 Arm band placed on. aa5 08:24 Triage completed. aa5 08:25 Loretta Severino, RN is Primary Nurse. jl7 08:38 Patient has correct armband on for positive identification. Bed in low position. Call jl7 light in reach. Side rails up X 1. 09:03 Chest Pa And Lat (2 Views) XRAY In Process Unspecified. EDMS 09:03 Knee Right 3 View XRAY In Process Unspecified. EDMS 10:37 US Extremity Venous Unilateral Ltd In Process Unspecified. EDMS Administered Medications: No medications were administered Outcome: 11:33 Discharge ordered by . kb 12:11 Patient left the ED. tr6 Signatures: Dispatcher [employer] EDMS Mahsa Mcfarlane FNP-C FNP-Ckb Martinez, Amelia as Calderon, Audri, RN RN aa5 Loretta Severino, SHABNAM RN jl7 Leila Oleary RN RN tr6
--- NOTE | 2021-04-26 11:34 | EDPHYS ---
Physician Documentation [facility] Name: Daniele Guadarrama Age: 50 yrs Sex: Male : 1970 Arrival Date: 04/26/2021 Time: 08:03 Bed 7 Private MD: ED Physician Valeriy Barnard HPI: 04/26 15:17 This 50 yrs old Male presents to ER via Ambulatory with complaints of Knee kb Pain - swelling, Shortness Of Breath. 15:17 The patient presents with pain, swelling. The complaints affect the right knee. kb Context: The problem was sustained at an unknown site, resulted from an unknown cause, the patient can fully bear weight, the patient is able to ambulate. Onset: The symptoms/episode began/occurred 10 day(s) ago. Modifying factors: The symptoms are alleviated by nothing. the symptoms are aggravated by nothing. Associated signs and symptoms: Pertinent positives: swelling, Pertinent negatives calf tenderness, fever, nausea, numbness, rash, tingling, vomiting, warmth, weakness. Treatment prior to arrival includes: no previous treatment. Severity of symptoms: At their worst the symptoms were moderate, in the emergency department the symptoms are unchanged. The patient has not experienced similar symptoms in the past. The patient has not recently seen a physician. Pt reports swelling and slight pain to right knee for 10 days. Also reports shortness of breath. Denies chest pain or palpitations. Reports he had covid last month. Historical: - Allergies: 08:21 No Known Allergies; aa5 - PMHx: 08:21 Atrial Fib; CHF; SVT; thyroid CA; Thyroid problem; aa5 - PSHx: 08:21 Defibrillator; Left hip replacement; left shoulder; aa5 - Immunization history:: Adult Immunizations up to date, Client reports having NOT received the Covid vaccine. - Social history:: Smoking status: Patient reports the use of cigarette tobacco products, denies chronic smoking, but will smoke occasionally. ROS: 15:16 Constitutional: Negative for fever, chills, and weight loss. kb 15:16 Respiratory: Positive for shortness of breath, Negative for cough, dyspnea on exertion, hemoptysis, orthopnea, pleurisy, sputum production, wheezing. 15:16 MS/extremity: Positive for pain, swelling, of the right knee. 15:16 All other systems are negative. Exam: 15:16 Constitutional: This is a well developed, well nourished patient who is awake, alert, kb and in no acute distress. Head/Face: Normocephalic, atraumatic. Cardiovascular: Regular rate and rhythm with a normal S1 and S2. No gallops, murmurs, or rubs. No pulse deficits. Respiratory: Respirations even and unlabored. No increased work of breathing, no retractions or nasal flaring. Abdomen/GI: Soft, non-tender. No distention Skin: Warm, dry with normal turgor. Normal color. Neuro: Awake and alert, GCS 15, oriented to person, place, time, and situation. Moves all extremities. Normal gait. Psych: Awake, alert, with orientation to person, place and time. Behavior, mood, and affect are within normal limits. 15:16 Musculoskeletal/extremity: Extremities: grossly normal except: noted in the right knee: pain, swelling, ROM: intact in all extremities, Circulation is intact in all extremities. Sensation intact. Weight bearing: able to fully bear weight. Vital Signs: 08:18 BP 112 / 79; Pulse 84; Resp 16 S; Temp 98.0(TE); Pulse Ox 99% on R/A; aa5 10:17 BP 124 / 87; Pulse 71; Resp 15; Pulse Ox 99% ; jl7 MDM: 08:13 Patient medically screened. kb 11:31 Data reviewed: vital signs, nurses notes. Data interpreted: Pulse oximetry: on room air kb is 99 %. Interpretation: normal. Counseling: I had a detailed discussion with the patient and/or guardian regarding: the historical points, exam findings, and any diagnostic results supporting the discharge/admit diagnosis, radiology results, the need for outpatient follow up, a family practitioner, to return to the emergency department if symptoms worsen or persist or if there are any questions or concerns that arise at home. 04/26 08:20 Order name: Chest Pa And Lat (2 Views) XRAY; Complete Time: 10:07 kb 04/26 08:20 Order name: Knee Right 3 View XRAY; Complete Time: 10:08 kb 04/26 10:09 Order name: US Extremity Venous Unilateral Ltd; Complete Time: 11:31 kb Administered Medications: No medications were administered Disposition Summary: 04/26/21 11:33 Discharge Ordered Location: Home kb Condition: Stable kb Diagnosis - Pain in right knee kb - Dyspnea kb Followup: kb - With: Emergency Department - When: As needed - Reason: Worsening of condition Followup: kb - With: Private Physician - When: 2 - 3 days - Reason: Recheck today's complaints, Continuance of care, Re-evaluation by your physician Discharge Instructions: - Discharge Summary Sheet kb - Musculoskeletal Pain kb - Viral Respiratory Infection, [id number] kb Forms: - Medication Reconciliation Form kb - Thank You Letter kb - Antibiotic Education kb - Prescription Opioid Use kb Signatures: Dispatcher [employer] EDMS Mahsa Mcfarlane, RIGHT OF WAY MAINTENANCE SUPERVISOR-C RIGHT OF WAY MAINTENANCE SUPERVISOR-Kanchan Amor, RN RN aa5 Loretta Severino RN RN jl7
[2021-04-26 12:17] VITALS: TEMP 98; O2SAT 99
[2021-04-26 12:18] VITALS: BP 124/87
== END 2021-04-26 12:11 | disposition home or self-care (01) ==
LOC: ER 08:00
DX: R06.00 Dyspnea, unspecified (principal); Z86.16 Personal history of COVID-19; F17.210 Nicotine dependence, cigarettes, uncomplicated; Z95.810 Presence of automatic (implantable) cardiac defibrillator
CPT/HCPCS: 71046; 93971; 99282

== ENCOUNTER 2021-08-05 13:34 | Emergency (ER) | payer OTHER ==
[2021-08-05 14:21] LABS: Absolute Lymphocytes (CBC) 1.8 K/uL (0.7-4.9); Basophils % 0.9 % (0-1.3); Hematocrit 43.5 % (39.6-49.0); Lymphocytes % 25.8 % (15.3-44.8); MPV 7.9 fL (7.6-11.3); RBC Red Blood Cell Count 4.71 M/uL (4.33-5.43)
[2021-08-05 14:40] LABS: ALT/SGPT 23 U/L (12-78); AST/SGOT 20 U/L (15-37); Alkaline Phosphatase 63 U/L (45-117); BUN Blood Urea Nitrogen 17 mg/dL (7-18); Bicarbonate 29 mmol/L (21-32); Bilirubin Direct < 0.1 mg/dL (0-0.2); Bilirubin Total 0.3 mg/dL (0.2-1.0); Glucose Level 96 mg/dL (74-106); Lipase 89 U/L (73-393); Protein, Total 7.7 g/dL (6.4-8.2); Sodium Level 140 mmol/L (136-145)
--- NOTE | 2021-08-05 15:10 | RAD REPORT ---
EXAM DESCRIPTION: CTAbdomen Pelvis W Contrast - 08/05/2021 2:57 pm CLINICAL HISTORY: ABD PAIN COMPARISON: Abdomen Pelvis W Contrast dated 04/03/2021 TECHNIQUE: CT of the abdomen and pelvis was performed. All CT scans are performed using dose optimization technique as appropriate and may include automated exposure control or mA/KV adjustment according to patient size. FINDINGS: Lower chest: Pacemaker leads. Thickened distal esophagus suggesting gastroesophageal reflu x disease. Liver: No acute abnormality or suspicious lesions. Biliary: No biliary ductal dilatation. Stomach: No significant focal abnormality. Duodenum: No significant focal abnormality. Pancreas: No significant abnormality. Spleen: No significant abnormality. Adrenal: No suspicious lesions. Kidney/ureter: No hydronephrosis. No renal calculi. Retroperitoneum: No retroperitoneal adenopathy. Vascular: Atherosclerosis. Bowel: No significant focal abnormality. Normal appendix. Peritoneum: No ascites or free air. Tiny containing right hernia Bladder: Grossly unremarkable. Reproductive: No adnexal masses. Bones: No acute fracture. Left hip arthroplasty. Other: n/a IMPRESSION: No acute intra-abdominal or pelvic finding. Normal appendix.
[2021-08-05] MEDS ORDERED: NA CHLORIDE 0.9% 500 ML ONE (15:48)
--- NOTE | 2021-08-05 15:48 | ER ---
Nurse's Notes [facility] Name: Daniele Guadarrama Age: 50 yrs Sex: Male : 1970 Arrival Date: 08/05/2021 Time: 13:37 Bed 30 Private MD: Diagnosis: Other abdominal [id number] Presentation: 08/05 13:56 Chief complaint: Patient states: having abdominal pain this morning when he woke up. ap3 Patient states the pain began in the upper right quadrant, and radiates to his left upper quadrant and down to the lower right quadrant as well. Patient denies having this pain before. Patient also reports having a low grade temperature. Coronavirus screen: Client presents with at least one sign or symptom that may indicate coronavirus-19. Standard/surgical mask placed on the client. Ebola Screen: No symptoms or risks identified at this time. Initial Sepsis Screen: Does the patient meet any 2 criteria? No. Patient's initial sepsis screen is negative. Does the patient have a suspected source of infection? No. Patient's initial sepsis screen is negative. Risk Assessment: Do you want to hurt yourself or someone else? Patient reports no desire to harm self or others. Onset of symptoms was August 05, 2021. 13:56 Method Of Arrival: Ambulatory ap3 13:59 Acuity: TAVARES 3 ap3 Triage Assessment: 14:00 General: Appears in no apparent distress. General: Behavior is calm, cooperative. Pain: ap3 Complains of pain in right upper quadrant Pain radiates to left upper quadrant and right lower quadrant Pain currently is 5 out of 10 on a pain scale. at worst was 8 out of 10 on a pain scale. Quality of pain is described as crampy, Pain began suddenly, this morning Also complains of nausea, small amount blood on toilet paper when he wiped this morning. Neuro: Level of Consciousness is awake, alert, obeys commands, Oriented to person, place, time, situation, Moves all extremities. Speech is normal. Cardiovascular: Patient's skin is warm and dry. Respiratory: Airway is patent Respiratory effort is even, unlabored. GI: Reports upper abdominal pain, nausea. Historical: - Allergies: 13:58 No Known Allergies; ap3 - Home Meds: 13:58 levothyroxine oral [Active]; ap3 - PMHx: 13:58 CHF; SVT; thyroid CA; Thyroid problem; Atrial Fib; ap3 - PSHx: 13:58 defibrillator; Left hip replacement; left shoulder; ap3 - Immunization history:: Client reports having NOT received the Covid vaccine. - Social history:: Smoking status: Patient reports the use of cigarette tobacco products, denies chronic smoking, but will smoke occasionally, Patient uses alcohol, occasionally. Patient/guardian denies using street drugs. Screenin:03 Abuse screen: Denies threats or abuse. Nutritional screening: No deficits noted. ap3 Tuberculosis screening: No symptoms or risk factors identified. 14:16 Fall Risk No fall in past 12 months (0 pts). No secondary diagnosis (0 pts). IV access vg1 (20 points). Ambulatory Aid- None/Bed Rest/Nurse Assist (0 pts). Gait- Normal/Bed Rest/Wheelchair (0 pts) Mental Status- Oriented to own ability (0 pts). Total George Fall Scale indicates No Risk (0-24 pts). Assessment: 14:14 General: Appears in no apparent distress. uncomfortable, Behavior is calm, cooperative. vg1 Pain: Complains of pain in right lower quadrant Pain currently is 6 out of 10 on a pain scale. Pain began this morning. Neuro: Level of Consciousness is awake, alert, obeys commands, Oriented to person, place, time, situation. Cardiovascular: Patient's skin is warm and dry. Respiratory: Airway is patent Respiratory effort is even, unlabored. GI: Abdomen is flat, non-distended, Bowel sounds present X 4 quads. Abdomen is tender to palpation in right lower quadrant Reports rectal bleeding, nausea, Patient currently denies diarrhea, vomiting. : No signs and/or symptoms were reported regarding the genitourinary system. EENT: No signs and/or symptoms were reported regarding the EENT system. Derm: Skin is intact, is healthy with good turgor. Musculoskeletal: Circulation, motion, and sensation intact. 15:49 Reassessment: Patient appears in no apparent distress at this time. Patient and/or vg1 family updated on plan of care and expected duration. Pain level reassessed. Patient is alert, oriented x 3, equal unlabored respirations, skin warm/dry/pink. Patient denies pain at this time. Patient states feeling better. 15:55 Reassessment: Pt up for d/c, currently waiting for new order results. vg1 Vital Signs: 13:59 BP 140 / 99; Pulse 92; Resp 15; Temp 98.9; Pulse Ox 99% on R/A; Weight 77.11 kg; Height ap3 5 ft. 10 in. (177.80 cm); Pain 5/10; 14:15 BP 134 / 95; Pulse 74; Resp 16; Pulse Ox 99% ; vg1 15:34 BP 138 / 102; Pulse 62; Resp 16; Pulse Ox 100% ; vg1 15:45 BP 138 / 100; Pulse 63; Resp 16; Pulse Ox 99% ; vg1 13:59 Body Mass Index 24.39 (77.11 kg, 177.80 cm) ap3 ED Course: 13:37 Patient arrived in ED. am2 14:00 Triage completed. ap3 14:03 Arm band placed on right wrist. ap3 14:09 Spring Roblero RN is Primary Nurse. vg1 14:13 Lipase Sent. ch5 14:13 Hepatic Function Sent. ch5 14:13 CBC with Diff Sent. ch5 14:13 Basic Metabolic Panel Sent. ch5 14:16 Patient has correct armband on for positive identification. Bed in low position. Call vg1 light in reach. Side rails up X 1. Adult w/ patient. 14:16 Inserted saline lock: 20 gauge in right antecubital area, using aseptic technique. vg1 ,using aseptic technique. Completed by Mauricio HAQUE Blood collected. 14:23 Bret Ward MD is Attending Physician. kdr 14:57 CT Abd/Pelvis - IV Contrast Only In Process Unspecified. EDMS 16:01 EKG done, by ED staff, reviewed by Bret Ward MD. mb4 16:59 No provider procedures requiring assistance completed. IV discontinued, intact, vg1 bleeding controlled, No redness/swelling at site. Pressure dressing applied. Administered Medications: 15:27 Drug: NS 0.9% 500 ml Route: IV; Rate: bolus; Site: right antecubital; ch5 16:05 Follow up: IV Status: Completed infusion; IV Intake: 500ml vg1 15:27 Drug: Pepcid (famotidine) 20 mg Route: IVP; Site: right antecubital; ch5 15:49 Follow up: Response: No adverse reaction; Marked relief of symptoms vg1 Intake: 16:05 IV: 500ml; Total: 500ml. vg1 Outcome: 15:47 Discharge ordered by . kdr 16:59 Discharged to home ambulatory. vg1 16:59 Condition: stable 16:59 Discharge instructions given to patient, Instructed on discharge instructions, follow up and referral plans. medication usage, Demonstrated understanding of instructions, follow-up care, medications, Prescriptions given X 2. 17:00 Patient left the ED. vg1 Signatures: Dispatcher [employer] EDMS Bret Ward MD MD kdr Adelita More am2 Adelita Grullon, RN RN ap3 Namrata Dave mb4 Spring Roblero RN RN vg1 Josh Gerard, RN RN ch5
--- NOTE | 2021-08-05 15:48 | EDPHYS ---
Physician Documentation [facility] Name: Daniele Guadarrama Age: 50 yrs Sex: Male : 1970 Arrival Date: 08/05/2021 Time: 13:37 Bed 30 Private MD: ED Physician Bret Ward HPI: 08/06 12:58 This 50 yrs old Male presents to ER via Ambulatory with complaints of kdr Abdominal Pain - RLQ, Nausea, Bloody Stools. 12:55 Patient states that when he woke up this morning, he had pain in his right upper kdr quadrant. Pain radiates to the left upper quadrant and down to the right lower quadrant. He also reports a low-grade subjective fever. His abdominal pain is waxing and waning and at worst is rated as moderate. 12:56 The patient presents to the emergency department with nausea, that is mild, that is kdr moderate. Onset: The symptoms/episode began/occurred suddenly, just prior to arrival. Possible causes: unknown. The symptoms are aggravated by nothing. The symptoms are alleviated by nothing. Associated signs and symptoms: The patient has no apparent associated signs or symptoms. Severity of symptoms: At their worst the symptoms were mild moderate in the emergency department the symptoms are unchanged. The patient has not experienced similar symptoms in the past. The patient has not recently seen a physician. Historical: - Allergies: 08/05 13:58 No Known Allergies; ap3 - Home Meds: 13:58 levothyroxine oral [Active]; ap3 - PMHx: 13:58 CHF; SVT; thyroid CA; Thyroid problem; Atrial Fib; ap3 - PSHx: 13:58 defibrillator; Left hip replacement; left shoulder; ap3 - Immunization history:: Client reports having NOT received the Covid vaccine. - Social history:: Smoking status: Patient reports the use of cigarette tobacco products, denies chronic smoking, but will smoke occasionally, Patient uses alcohol, occasionally. Patient/guardian denies using street drugs. ROS: 08/06 12:56 Constitutional: Negative for fever, chills, and weight loss, Eyes: Negative for injury, kdr pain, redness, and discharge, ENT: Negative for injury, pain, and discharge, Neck: Negative for injury, pain, and swelling, Cardiovascular: Negative for chest pain, palpitations, and edema, Respiratory: Negative for shortness of breath, cough, wheezing, and pleuritic chest pain, Back: Negative for injury and pain, : Negative for injury, bleeding, discharge, and swelling, MS/Extremity: Negative for injury and deformity, Skin: Negative for injury, rash, and discoloration, Neuro: Negative for headache, weakness, numbness, tingling, and seizure activity. Psych: Negative for depression, anxiety, suicide ideation, homicidal ideation, and hallucinations, Allergy/Immunology: Negative for hives, rash, and allergies, Endocrine: Negative for neck swelling, polydipsia, polyuria, polyphagia, and marked weight changes, Hematologic/Lymphatic: Negative for swollen nodes, abnormal bleeding, and unusual bruising. Abdomen/GI: Positive for abdominal pain, diarrhea, Negative for nausea, vomiting, and diarrhea. Exam: 12:56 Constitutional: This is a well developed, well nourished patient who is awake, alert, kdr and in no acute distress. Head/Face: Normocephalic, atraumatic. Eyes: Pupils equal round and reactive to light, extra-ocular motions intact. Lids and lashes normal. Conjunctiva and sclera are non-icteric and not injected. Cornea within normal limits. Periorbital areas with no swelling, redness, or edema. Neck: Trachea midline, no thyromegaly or masses palpated, and no cervical lymphadenopathy. Supple, full range of motion without nuchal rigidity, or vertebral point tenderness. No Meningismus. Chest/axilla: Normal chest wall appearance and motion. Nontender with no deformity. No lesions are appreciated. Cardiovascular: Regular rate and rhythm with a normal S1 and S2. No gallops, murmurs, or rubs. Normal PMI, no JVD. No pulse deficits. Respiratory: Lungs have equal breath sounds bilaterally, clear to auscultation and percussion. No rales, rhonchi or wheezes noted. No increased work of breathing, no retractions or nasal flaring. Back: No spinal tenderness. No costovertebral tenderness. Full range of motion. Skin: Warm, dry with normal turgor. Normal color with no rashes, no lesions, and no evidence of cellulitis. MS/ Extremity: Pulses equal, no cyanosis. Neurovascular intact. Full, normal range of motion. Neuro: Awake and alert, GCS 15, oriented to person, place, time, and situation. Cranial nerves II-XII grossly intact. Motor strength 5/5 in all extremities. Sensory grossly intact. Cerebellar exam normal. Normal gait. Psych: Awake, alert, with orientation to person, place and time. Behavior, mood, and affect are within normal limits. 12:56 Abdomen/GI: Inspection: abdomen appears normal, Bowel sounds: active, diminished, in all quadrants, Palpation: soft, mild abdominal tenderness, rebound tenderness, is appreciated in the right upper quadrant, left upper quadrant and right lower quadrant, voluntary guarding, is not appreciated. Vital Signs: 08/05 13:59 BP 140 / 99; Pulse 92; Resp 15; Temp 98.9; Pulse Ox 99% on R/A; Weight 77.11 kg; Height ap3 5 ft. 10 in. (177.80 cm); Pain 5/10; 14:15 BP 134 / 95; Pulse 74; Resp 16; Pulse Ox 99% ; vg1 15:34 BP 138 / 102; Pulse 62; Resp 16; Pulse Ox 100% ; vg1 15:45 BP 138 / 100; Pulse 63; Resp 16; Pulse Ox 99% ; vg1 13:59 Body Mass Index 24.39 (77.11 kg, 177.80 cm) ap3 MDM: 15:47 Patient medically screened. kdr 08/06 12:56 Data reviewed: vital signs, nurses notes, lab test result(s), radiologic studies. kdr Counseling: I had a detailed discussion with the patient and/or guardian regarding: the historical points, exam findings, and any diagnostic results supporting the discharge/admit diagnosis, lab results, radiology results, the need for outpatient follow up. 08/05 14:12 Order name: Basic Metabolic Panel; Complete Time: 15:11 ch5 08/05 14:12 Order name: CBC with Diff; Complete Time: 15: ch5 08/05 14:12 Order name: Hepatic Function; Complete Time: 15:11 ch5 08/05 14:12 Order name: Lipase; Complete Time: 15:11 ch5 08/05 14:24 Order name: CT Abd/Pelvis - IV Contrast Only; Complete Time: 15:11 kdr 08/05 15:54 Order name: Troponin (emerg Dept Use Only); Complete Time: 16:52 kdr 08/05 14:12 Order name: IV Saline Lock; Complete Time: 14:13 5 08/05 14:12 Order name: Labs collected and sent; Complete Time: 14:13 [facility] 08/05 15:54 Order name: EKG - Nurse/Tech; Complete Time: 16:05 kdr Administered Medications: 08/05 15:27 Drug: NS 0.9% 500 ml Route: IV; Rate: bolus; Site: right antecubital; ch5 16:05 Follow up: IV Status: Completed infusion; IV Intake: 500ml vg1 15:27 Drug: Pepcid (famotidine) 20 mg Route: IVP; Site: right antecubital; 5 15:49 Follow up: Response: No adverse reaction; Marked relief of symptoms vg1 Disposition Summary: 08/05/21 15:47 Discharge Ordered Location: Home kdr Problem: new kdr Symptoms: have improved kdr Condition: Stable kdr Diagnosis - Other abdominal pain - Right-sided kdr Followup: kdr - With: Private Physician - When: 2 - 3 days - Reason: If symptoms return, Further diagnostic work-up, Recheck today's complaints, Continuance of care, Re-evaluation by your physician Discharge Instructions: - Discharge Summary Sheet kdr - Abdominal Pain, Adult, [id number] kdr Forms: - Medication Reconciliation Form kdr - Thank You Letter kdr Prescriptions: - Pepcid 20 mg Oral Tablet - take 1 tablet by ORAL route every 12 hours for 5 days; 10 tablet; Refills: 0, kdr Product Selection Permitted - Zofran 4 mg Oral Tablet - take 1 tablet by ORAL route every 4-6 hours As needed; 20 tablet; Refills: 0, kdr Product Selection Permitted Signatures: Dispatcher [employer] Bret Robles MD MD kdr Adelita Grullon RN RN ap3 Josh Gerard RN RN ch5 Spring Roblero RN vg1
[2021-08-05] MEDS ORDERED: FAMOTIDINE 20 MG/2 ML VIAL IV ONE (15:49)
[2021-08-05 17:27] VITALS: TEMP 98.9
[2021-08-05 17:30] VITALS: BP 138/100; O2SAT 99
== END 2021-08-05 17:00 | disposition home or self-care (01) ==
LOC: ER 13:34
DX: R10.9 Unspecified abdominal pain (principal); E07.9 Disorder of thyroid, unspecified; F17.210 Nicotine dependence, cigarettes, uncomplicated; Z95.810 Presence of automatic (implantable) cardiac defibrillator
CPT/HCPCS: 85025; 80048; 36415; 80076; 84484; 83690; 74177; Q9967; J7040

== ENCOUNTER 2022-02-04 16:15 | Emergency (ER) | payer OTHER ==
--- OUTSIDE RECORDS SUMMARY | 2022-02-04 16:18 | XMS REPORT | Continuity of Care Document ---
:[address] [facility] t Address [address] [place] [address] [address]. [address] [place] [address] Care Team Providers Name Role Phone ALFA Attending Clinician Unavailable KYLAH Attending Clinician Unavailable Jazmine Casanova Attending Clinician [phone] SILVIA Attending Clinician Unavailable MD SILVIA Attending Clinician Unavailable FRANCISCO Attending Clinician Unavailable MD FRANCISCO Attending Clinician Unavailable MARY Attending Clinician Unavailable ALFA Admitting Clinician Unavailable KYLAH Admitting Clinician Unavailable SILVIA Admitting Clinician Unavailable MD SILVIA Admitting Clinician Unavailable FRANCISCO Admitting Clinician Unavailable MD FRANCISCO Admitting Clinician Unavailable MARY Admitting Clinician Unavailable Payers Payer Name Policy Type Policy Number Effective Date Expiration Date S ledy MEDICARE [place]: [id number] 2013 [employer] 00:00:00 - FORMERLY [facility] Problems This patient has no known problems. Allergies, Adverse Reactions, Alerts This patient has no known allergies or adverse reactions. Medications This patient has no known medications. Procedures This patient has no known procedures. Encounters Start End Encounter Admission Attending Care Care Encounter Source Date/Time Date/Time Type Type Clinicians Facility Department ID 2021-11-11 Outpatient [facility] [id number] [facility] [address] 12:01:38 [id number] [facility] 2022-02-01 2022-02-01 Outpatient [facility] [id number] [place] 11:53:00 11:53:00 [facility] 2022-01-142022-01-14 Outpatient [facility] [id number] [place] 05:00:00 05:00:00 [facility] 2021-07-18 2021-07-[address] [facility] [address] [place] 07:21:00 07:21:00 _L [facility] 2021-07-06 2021-07-06 [facility] [address] [place] 11:11:00 11:11:00 _L [facility] 2021-07-06 2021-07-06 Outpatient [facility] [id number] 00:00:00 00:00:00 , Macrina [id number] Jazmine [id number] 2021-02-11 2021-02-11 [facility] [address] [place] 04:34:00 04:34:00 _L [facility] 2021-01-17 2021-01-18 Outpatient [facility] [id number] [place] 00:00:00 00:00:00 SHAHANA [address] 2021-01-07 2021-01-07 Outpatient [facility] [id number] [place] 00:00:00 00:00:00 NADIM [address] 2021-01-05 2021-01-05 Outpatient FRANCISCO, [facility] [id number] [place] 00:00:00 00:00:00 NADIM [address] 2020-12-17 2020-12-17 [facility]patient [facility] [id number] [place] 00:00:00 00:00:00 SHAHANA [address] 2020-12-17 2020-12-17 [facility] [id number] [place] 00:00:00 00:00:00 SHAHANA [address] 2020-11-27 2020-11-27 [facility] [address] [place] 09:24:00 09:24:00 _L [facility] 2020-11-20 2020-11-20 Outpatient [facility] [id number] [place] 01:02:00 01:02:00 [facility] 2020-10-15 2020-10-15 Outpatient [facility] [id number] 01:03:00 01:03:00 [facility] 2020-08-19 2020-08-19 Outpatient [facility] [id number] 2019-12-25 2019-12-25 Outpatient [facility] [id number] [place] 00:00:00 00:00:00 SHAHANA [address] Results Test Description Test Time Test Comments Results Result Comments Source SARS-CoV-2 (COVID-19) RNA [Presence] in Respiratory sp ecimen by 2021-01-18 05:40:52 TAVARES with probe detection Test Item Value Reference Range Interpretation Comme nts SARS-CoV-2 (COVID-19) RNA [Presence] in Respiratory Not detected No t-Detected specimen by TAVARES with probe detection (test code = 82260-6) SARS-CoV-2 (COVID-19) RNA [Presence] in Respiratory specimen by TAVARES with probe [id number] 22:22:18 Test Item Value Reference Range Interpretation Comments SARS-CoV-2 (COVID-19) RNA Not detected Not-Detected [Presence] in Respiratory specimen by TAVARES with probe detection (test code = 14068-7)
[2022-02-04 16:47] LABS: Urine Blood Negative (Negative); Urine Glucose Negative (Negative); Urine Protein Negative (Negative); Urine Specific Gravity 1.025 (1.005-1.030); Urine pH 5.5 (5.0-7.0)
[2022-02-04 16:55] LABS: Absolute Lymphocytes (CBC) 1.3 K/uL (0.7-4.9); Hematocrit 49.6 % (39.6-49.0); Lymphocytes % 25.4 % (15.3-44.8); MPV 8.5 fL (7.6-11.3); RBC Red Blood Cell Count 5.14 M/uL (4.33-5.43)
[2022-02-04 18:28] LABS: Albumin 3.6 g/dL (3.4-5.0); Bilirubin Total 0.4 mg/dL (0.2-1.0); Potassium 4.5 mmol/L (3.5-5.1); Protein, Total 7.3 g/dL (6.4-8.2)
--- NOTE | 2022-02-04 18:46 | ER ---
Nurse's Notes [facility] Name: Daniele Guadarrama Age: 51 yrs Sex: Male : 1970 Arrival Date: 02/04/2022 Time: 16:16 Bed 9 Private MD: Diagnosis: Hypothyroidism, unspecified Presentation: 02/04 16:17 Chief complaint: Patient states: "I feel like I've hit a wall. I don't have my thyroid ab2 anymore and im out of medicine so that could be it." Pt c/o fatigue, lightheaded. Coronavirus screen: Vaccine status: Patient reports being unvaccinated. Client denies travel out of the [place] in the last 14 days. At this time, the client does not indicate any symptoms associated with coronavirus-19. Ebola Screen: Patient negative for fever greater than or equal to 101.5 degrees Fahrenheit, and additional compatible Ebola Virus Disease symptoms Patient denies exposure to infectious person. Patient denies travel to an Ebola-affected area in the 21 days before illness onset. No symptoms or risks identified at this time. Initial Sepsis Screen: Does the patient meet any 2 criteria? No. Patient's initial sepsis screen is negative. Does the patient have a suspected source of infection? No. Patient's initial sepsis screen is negative. Risk Assessment: Do you want to hurt yourself or someone else? Patient reports no desire to harm self or others. Onset of symptoms is unknown. 16:17 Method Of Arrival: Ambulatory ab2 16:17 Acuity: TAVARES 3 ab2 Triage Assessment: 16:21 General: Appears in no apparent distress. uncomfortable, Behavior is calm, cooperative, ab2 appropriate for age. Pain: Denies pain. Neuro: Level of Consciousness is awake, alert, obeys commands, Oriented to person, place, time, situation, Appropriate for age Reports dizziness, weakness. Cardiovascular: No deficits noted. Denies chest pain, shortness of breath. Respiratory: Airway is patent Respiratory effort is even, unlabored, Respiratory pattern is regular, symmetrical. GI: No deficits noted. No signs and/or symptoms were reported involving the gastrointestinal system. : No deficits noted. No signs and/or symptoms were reported regarding the genitourinary system. Derm: Skin is intact, is healthy with good turgor, Skin is pink, warm \\T\\ dry. Historical: - Allergies: 16:21 No Known Allergies; ab2 - PMHx: 16:21 Atrial Fib; CHF; SVT; thyroid CA; Thyroid problem; ab2 - PSHx: 16:21 defibrillator; Left hip replacement; left shoulder; ab2 - Immunization history:: Adult Immunizations up to date. - Social history:: Smoking status: Patient reports the use of cigarette tobacco products, denies chronic smoking, but will smoke occasionally. - Family history:: not pertinent. Screenin:32 Abuse screen: Denies threats or abuse. Denies injuries from another. Nutritional ld1 screening: No deficits noted. Tuberculosis screening: No symptoms or risk factors identified. Fall Risk None identified. Assessment: 16:32 General: Appears in no apparent distress. comfortable, Behavior is calm, cooperative, ld1 appropriate for age. Pain: Denies pain. Neuro: Level of Consciousness is awake, alert, obeys commands, Oriented to person, place, time, situation. Cardiovascular: Capillary refill < 3 seconds Patient's skin is warm and dry. Respiratory: Airway is patent Respiratory effort is even, unlabored. GI: Abdomen is flat, non-distended. : No signs and/or symptoms were reported regarding the genitourinary system. EENT: No signs and/or symptoms were reported regarding the EENT system. Derm: No signs and/or symptoms reported regarding the dermatologic system. Musculoskeletal: No signs and/or symptoms reported regarding the musculoskeletal system. Vital Signs: 16:17 BP 146 / 91; Pulse 85; Resp 17; Temp 97.7; Pulse Ox 100% on R/A; Weight 77.11 kg; ab2 Height 5 ft. 10 in. (177.80 cm); Pain 0/10; 16:32 BP 148 / 92; Pulse 81; Resp 18; Pulse Ox 100% on R/A; Pain 0/10; ld1 18:18 BP 155 / 107; Pulse 74; Resp 18; Temp 98.9(O); Pulse Ox 98% on R/A; ld1 16:17 Body Mass Index 24.39 (77.11 kg, 177.80 cm) ab2 ED Course: 16:16 Patient arrived in ED. am2 16:21 Triage completed. ab2 16:22 Arm band placed on right wrist. ab2 16:23 Dibbern, Gladys, RN is Primary Nurse. ld1 16:27 Mendoza Juares MD is Attending Physician. ma2 16:32 Patient has correct armband on for positive identification. Placed in gown. Bed in low ld1 position. Call light in reach. Side rails up X2. traffic monitor specialist on. Pulse ox on. NIBP on. Door closed. Noise minimized. Warm blanket given. 16:32 No provider procedures requiring assistance completed. ld1 16:46 Inserted saline lock: 20 gauge in right antecubital area, using aseptic technique. ld1 Blood collected. 18:57 IV discontinued, intact, bleeding controlled, No redness/swelling at site. ld1 Administered Medications: No medications were administered Outcome: 18:46 Discharge ordered by . ma2 18:57 Discharged to home ambulatory. ld1 18:57 Condition: stable 18:57 Discharge instructions given to patient, Instructed on discharge instructions, follow up and referral plans. Demonstrated understanding of instructions, follow-up care. 18:57 Patient left the ED. ld1 Signatures: Adelita More am2 Mendoza Juares MD MD nv2 Gladys Orozco, RN RN ld1 Baldev Mueller 2
--- NOTE | 2022-02-04 18:47 | EDPHYS ---
Physician Documentation [facility] Name: Daniele Guadarrama Age: 51 yrs Sex: Male : 1970 Arrival Date: 02/04/2022 Time: 16:16 Bed 9 Private MD: ED Physician Mendoza Juares HPI: 02/04 17:28 This 51 yrs old Male presents to ER via Ambulatory with complaints of Doesn't Feel ma2 Right. 17:28 Patient has not been taking his levothyroxine for years, presents with generalized ma2 weakness feels depressed and sleepy all day, patient states that he gets these symptoms every time he stopped taking his thyroid hormone, of note patient had thyroidectomy complete status post thyroid cancer, at age 14 and has been taking levothyroxine for years, stopped taking it few months ago. Historical: - Allergies: 16:21 No Known Allergies; ab2 - PMHx: 16:21 Atrial Fib; CHF; SVT; thyroid CA; Thyroid problem; ab2 - PSHx: 16:21 defibrillator; Left hip replacement; left shoulder; ab2 - Immunization history:: Adult Immunizations up to date. - Social history:: Smoking status: Patient reports the use of cigarette tobacco products, denies chronic smoking, but will smoke occasionally. - Family history:: not pertinent. ROS: 17:28 Constitutional: Negative for fever, chills, and weight loss. ma2 17:28 All other systems are negative. Exam: 17:28 Constitutional: This is a well developed, well nourished patient who is awake, alert, ma2 and in no acute distress. Head/Face: Normocephalic, atraumatic. Eyes: Pupils equal round and reactive to light, extra-ocular motions intact. Lids and lashes normal. Conjunctiva and sclera are non-icteric and not injected. Cornea within normal limits. Periorbital areas with no swelling, redness, or edema. ENT: Nares patent. No nasal discharge, no septal abnormalities noted. Tympanic membranes are normal and external auditory canals are clear. Oropharynx with no redness, swelling, or masses, exudates, or evidence of obstruction, uvula midline. Mucous membranes moist. Neck: Trachea midline, no thyromegaly or masses palpated, and no cervical lymphadenopathy. Supple, full range of motion without nuchal rigidity, or vertebral point tenderness. No Meningismus. Chest/axilla: Normal chest wall appearance and motion. Nontender with no deformity. No lesions are appreciated. Cardiovascular: Regular rate and rhythm with a normal S1 and S2. No gallops, murmurs, or rubs. Normal PMI, no JVD. No pulse deficits. Respiratory: Lungs have equal breath sounds bilaterally, clear to auscultation and percussion. No rales, rhonchi or wheezes noted. No increased work of breathing, no retractions or nasal flaring. Abdomen/GI: Soft, non-tender, with normal bowel sounds. No distension or tympany. No guarding or rebound. No evidence of tenderness throughout. Back: No spinal tenderness. No costovertebral tenderness. Full range of motion. MS/ Extremity: Pulses equal, no cyanosis. Neurovascular intact. Full, normal range of motion. Neuro: Awake and alert, GCS 15, oriented to person, place, time, and situation. Cranial nerves II-XII grossly intact. Motor strength 5/5 in all extremities. Sensory grossly intact. Cerebellar exam normal. Normal gait. Vital Signs: 16:17 BP 146 / 91; Pulse 85; Resp 17; Temp 97.7; Pulse Ox 100% on R/A; Weight 77.11 kg; ab2 Height 5 ft. 10 in. (177.80 cm); Pain 0/10; 16:32 BP 148 / 92; Pulse 81; Resp 18; Pulse Ox 100% on R/A; Pain 0/10; ld1 18:18 BP 155 / 107; Pulse 74; Resp 18; Temp 98.9(O); Pulse Ox 98% on R/A; ld1 16:17 Body Mass Index 24.39 (77.11 kg, 177.80 cm) ab2 MDM: 16:48 Patient medically screened. ma2 17:28 Differential Diagnosis Lysed weakness, hypothyroidism, versus electrolyte abnormality ma2 versus hypomagnesemia, will check for hypocalcemia as well. Data reviewed: vital signs, nurses notes. 18:45 ED course: rahul t4 is low, TSH is extremely high, however patient is awake alert ma2 oriented x4 vital signs within normal limits, no signs/symptoms of hypothyroidism,, will prescribe levothyroxine, close follow-up with PCP discharge home.. 02/04 16:27 Order name: CBC with Diff; Complete Time: 17:57 mt2 02/04 16:27 Order name: CMP; Complete Time: 18:45 mt2 02/04 16:27 Order name: TSH; Complete Time: 18:45 mt2 02/04 16:27 Order name: T4 Free; Complete Time: 18:45 mt2 02/04 16:27 Order name: Urine Dipstick-Ancillary (obtain specimen); Complete Time: 16:46 mt2 02/04 16:47 Order name: Urine Dipstick-Ancillary; Complete Time: 17:57 EDMS Administered Medications: No medications were administered Disposition Summary: 02/04/22 18:46 Discharge Ordered Location: Home ma2 Condition: Fair ma2 Diagnosis - Hypothyroidism, unspecified ma2 Followup: ma2 - With: Private Physician - When: Tomorrow - Reason: If symptoms return, Continuance of care Discharge Instructions: - Discharge Summary Sheet ma2 - Hypothyroidism ma2 Forms: - Medication Reconciliation Form ma2 - Thank You Letter ma2 - Antibiotic Education ma2 - Prescription Opioid Use ma2 Prescriptions: - Levothyroxine 100 mcg Oral Tablet - take 1 tablet by ORAL route once daily take 30 minutes before breakfast; 20 ma2 tablet; Refills: 0, Product Selection Permitted Signatures: Dispatcher [employer] EDMS Mendoza Juares MD MD ma2 Baldev Mueller ab2
[2022-02-04 19:18] VITALS: BP 155/107; TEMP 98.9; O2SAT 98
== END 2022-02-04 18:57 | disposition home or self-care (01) ==
LOC: ER 16:15
DX: E03.9 Hypothyroidism, unspecified (principal); I50.9 Heart failure, unspecified; I48.91 Unspecified atrial fibrillation; F17.210 Nicotine dependence, cigarettes, uncomplicated
CPT/HCPCS: 36415; 80053; 81003; 84439; 84443; 85025; 99284

== ENCOUNTER 2024-01-22 12:41 | Emergency (ER) | payer OTHER ==
[2024-01-22] MEDS ORDERED: ONDANSETRON 4 MG/2 ML VIAL ONE (14:34)
[2024-01-22] MEDS ORDERED: NA CHLORIDE 0.9% 1,000 ML ONE (14:34)
[2024-01-22 14:40] LABS: SARS-CoV-2 Antigen CONTROL BLUE LINE VIS/BG OK; SARS-CoV-2 Antigen Rapid Res Negative (Negative)
[2024-01-22 14:47] LABS: Absolute Basophils 0.1 K/uL (0-0.5); Absolute Eosinophils 0.2 K/uL (0-0.5); Absolute Lymphocytes (CBC) 1.4 K/uL (0.7-4.9); Absolute Monocytes 0.5 K/uL (0.1-1.3); Absolute Neutrophil 5.4 K/uL (1.8-8.0); Basophils % 0.9 % (0-1.3); Eosinophils % 2.5 % (0-4.4); Hematocrit 46.8 % (39.6-49.0); Hemoglobin 15.9 g/dL (13.6-17.9); Lymphocytes % 18.4 % (15.3-44.8); MCHC 33.9 g/dL (32.0-36.0); MCV 97.1 fL (80-100); MPV 9.1 fL (7.6-11.3); Neutrophils % 72.2 % (41.7-73.7); Platelets 273 thou/uL (152-406); RBC Red Blood Cell Count 4.82 M/uL (4.33-5.43); Red Cell Distribution Width 12.3 % (12.1-15.2)
[2024-01-22 14:51] LABS: Bilirubin Total 0.4 mg/dL (0.2-1.0); Troponin High Sensitivity 13.6 pg/mL (<58.9)
--- NOTE | 2024-01-22 15:11 | ER ---
Nurse's Notes [facility] Name: Daniele Guadarrama Age: 53 yrs Sex: Male : 1970 Arrival Date: 01/22/2024 Time: 12:41 Bed 20 Private MD: Diagnosis: Acute upper respiratory infection, unspecified;Nausea Presentation: 01/21 12:52 Chief complaint: Patient states: Feeling bad since Tuesday, malaise, cough, sneezing, nj1 runny nose, body aches, nausea. Getting worse. Coronavirus screen: Vaccine status: Patient reports being unvaccinated. Ebola Screen: Patient denies travel to an Ebola-affected area in the 21 days before illness onset. Initial Sepsis Screen: Does the patient meet any 2 criteria? No. Patient's initial sepsis screen is negative. Does the patient have a suspected source of infection? No. Patient's initial sepsis screen is negative. Risk Assessment: Do you want to hurt yourself or someone else? Patient reports no desire to harm self or others. Onset of symptoms was January 18, 2024. 12:52 Method Of Arrival: Ambulatory [facility] 12:52 Acuity: TAVARES 3 nj1 Historical: - Allergies: 12:54 No Known Allergies; nj1 - PMHx: 12:54 Thyroid problem; SVT; CHF; Atrial Fib; thyroid CA; nj1 - PSHx: 12:54 defibrillator; Left hip replacement; left shoulder; nj1 - Immunization history:: Client reports having NOT received the Covid vaccine. - Infectious Disease History:: Denies. - Social history:: Smoking status: Patient reports the use of cigarette tobacco products, smokes one-half pack cigarettes per day. Screenin:55 [facility] ED Fall Risk Assessment (Adult) History of falling in the last 3 months, tl4 including since admission No falls in past 3 months (0 pts) Confusion or Disorientation No (0 pts) Intoxicated or Sedated No (0 pts) Impaired Gait No (0 pts) Mobility Assist Device Used No (0 pt) Altered Elimination No (0 pt) Score/Fall Risk Level 0 - 2 = Low Risk Oriented to surroundings, Maintained a safe environment, Educated pt \T\ family on fall prevention, incl call for assistance when getting out of bed, Assessed \T\ reinforced patient's understanding of fall precautions. Abuse screen: Denies threats or abuse. Denies injuries from another. Nutritional screening: No deficits noted. Tuberculosis screening: No symptoms or risk factors identified. Assessment: 14:15 General: Appears in no apparent distress. Behavior is calm, cooperative. Pain: Denies tl4 pain. Neuro: Level of Consciousness is awake, alert, obeys commands, Oriented to person, place, time, situation, Moves all extremities. Gait is steady, Speech is normal. Cardiovascular: Capillary refill < 3 seconds Patient's skin is warm and dry. Respiratory: Airway is patent Respiratory effort is even, unlabored, Respiratory pattern is regular, symmetrical, Breath sounds are clear bilaterally. GI: Abdomen is non-distended, Abd is soft and non tender Reports nausea. : No deficits noted. No signs and/or symptoms were reported regarding the genitourinary system. EENT: No deficits noted. No signs and/or symptoms were reported regarding the EENT system. Derm: No deficits noted. No signs and/or symptoms reported regarding the dermatologic system. 15:51 Reassessment: No changes from previously documented assessment. Patient and/or family tl4 updated on plan of care and expected duration. Pain level reassessed. Patient is alert, oriented x 3, equal unlabored respirations, skin warm/dry/pink. Vital Signs: 12:52 BP 148 / 106; Pulse 82; Resp 18; Temp 98.5; Pulse Ox 100% ; Weight 77.11 kg; Height 5 nj1 ft. 10 in. ; Pain 5/10; 15:54 BP 150 / 86; Pulse 98; Resp 16; Temp 98.3(O); Pulse Ox 99% on R/A; tl4 12:52 Body Mass Index 24.39 (77.11 kg, 177.8 cm) nj1 12:52 Pain Scale: Adult [facility] ED Course: 12:43 Patient arrived in ED. rg4 12:49 Jimmy Guadarrama MD is Attending Physician. [facility] 12:54 Triage completed. nj1 12:55 Arm band placed on right wrist. nj1 14:02 Agapito Gramajo, SHABNAM is Primary Nurse. tl4 14:18 Initial lab(s) drawn, by me, sent to lab. COVID swab sent to lab. Flu and/or RSV swab ty sent to lab. Strep swab sent to lab. Inserted saline lock: 20 gauge in right antecubital area, using aseptic technique. Blood collected. 14:37 Troponin High Sensitivity Sent. tl4 14:37 Comprehensive Metabolic Panel Sent. tl4 14:37 CBC with Diff Sent. tl4 14:37 Strep Sent. tl4 14:37 SARS RAPID Sent. tl4 14:37 Flu Sent. tl4 15:55 Patient has correct armband on for positive identification. Placed in gown. Bed in low tl4 position. Call light in reach. Side rails up X 1. Adult w/ patient. Provided Education on: ED process. Client placed on continuous cardiac and pulse oximetry monitoring. NIBP monitoring applied. Door closed. Noise minimized. Lights dimmed. Moved to private room. Warm blanket given. 15:56 No provider procedures requiring assistance completed. IV discontinued, intact, tl4 bleeding controlled, No redness/swelling at site. Pressure dressing applied. Administered Medications: 14:43 Drug: NS 0.9% IV 1000 ml IV at 1 bolus Per protocol; 1000 mL bolus Route: IV; Rate: 1 tl4 bolus; Site: right antecubital; Delivery: Primary tubing; 15:39 Follow up: Response: No adverse reaction; IV Status: Completed infusion; IV Intake: tl4 1000ml 14:43 Drug: Ondansetron IVP 4 mg IVP once; over 2 minutes Route: IVP; Infused Over: 2 mins; tl4 Site: right antecubital; 15:40 Follow up: Response: No adverse reaction tl4 15:51 Drug: AZITHromycin PO 500 mg PO once Route: PO; tl4 15:51 Follow up: Response: No adverse reaction; Medication administered at discharge. tl4 Medication: 15:55 VIS not applicable for this client. tl4 Intake: 15:39 IV: 1000ml; Total: 1000ml. tl4 Outcome: 15:10 Discharge ordered by . lupe 15:56 Discharged to home ambulatory, tl4 15:56 Condition: stable 15:56 Discharge instructions given to patient, Instructed on discharge instructions, follow up and referral plans. medication usage, Demonstrated understanding of instructions, follow-up care, medications, Prescriptions given X 2, 15:56 Patient left the ED. tl4 Signatures: Jimmy Guadarrama MD MD cha Garcia, Rubi rg4 dAe Myers RN RN nj1 Agapito Gramajo RN RN tl4 Yandell, Avel ty
--- NOTE | 2024-01-22 15:11 | EDPHYS ---
Physician Documentation [facility] Name: Daniele Guadarrama Age: 53 yrs Sex: Male : 1970 Arrival Date: 01/22/2024 Time: 12:41 Bed 20 Private MD: Jimmy Robles HPI: 01/21 15:03 This 53 yrs old Male presents to ER via Ambulatory with complaints of Flu lupe Symptoms, Nausea. 15:03 The patient presents to the emergency department with nausea, that is mild. Onset: The lupe symptoms/episode began/occurred 2 day(s) ago. Possible causes: unknown. Historical: - Allergies: 12:54 No Known Allergies; nj1 - PMHx: 12:54 Thyroid problem; SVT; CHF; Atrial Fib; thyroid CA; nj1 - PSHx: 12:54 defibrillator; Left hip replacement; left shoulder; nj1 - Immunization history:: Client reports having NOT received the Covid vaccine. - Infectious Disease History:: Denies. - Social history:: Smoking status: Patient reports the use of cigarette tobacco products, smokes one-half pack cigarettes per day. ROS: 15:04 Constitutional: Negative for fever, chills, and weight loss, Eyes: Negative for injury, lupe pain, redness, and discharge, ENT: Negative for injury, pain, and discharge, Neck: Negative for injury, pain, and swelling, Cardiovascular: Negative for chest pain, palpitations, and edema, Respiratory: Negative for shortness of breath, cough, wheezing, and pleuritic chest pain, Back: Negative for injury and pain, : Negative for injury, bleeding, discharge, and swelling, MS/Extremity: Negative for injury and deformity, Skin: Negative for injury, rash, and discoloration, Neuro: Negative for headache, weakness, numbness, tingling, and seizure, Psych: Negative for depression, anxiety, suicide ideation, homicidal ideation, and hallucinations, Allergy/Immunology: Negative for hives, rash, and allergies, Endocrine: Negative for neck swelling, polydipsia, polyuria, polyphagia, and marked weight changes, Hematologic/Lymphatic: Negative for swollen nodes, abnormal bleeding, and unusual bruising, 15:04 Respiratory: Positive for cough, with no reported sputum, 15:04 Abdomen/GI: Positive for nausea, Exam: 15:04 Constitutional: This is a well developed, well nourished patient who is awake, alert, lupe and in no acute distress. Head/Face: Normocephalic, atraumatic. Eyes: Pupils equal round and reactive to light, extra-ocular motions intact. Lids and lashes normal. Conjunctiva and sclera are non-icteric and not injected. Cornea within normal limits. Periorbital areas with no swelling, redness, or edema. ENT: Nares patent. No nasal discharge, no septal abnormalities noted. Tympanic membranes are normal and external auditory canals are clear. Oropharynx with no redness, swelling, or masses, exudates, or evidence of obstruction, uvula midline. Mucous membranes moist. Neck: Trachea midline, no thyromegaly or masses palpated, and no cervical lymphadenopathy. Supple, full range of motion without nuchal rigidity, or vertebral point tenderness. No Meningismus. Chest/axilla: Normal chest wall appearance and motion. Nontender with no deformity. No lesions are appreciated. Cardiovascular: Regular rate and rhythm with a normal S1 and S2. No gallops, murmurs, or rubs. Normal PMI, no JVD. No pulse deficits. Abdomen/GI: Soft, non-tender, with normal bowel sounds. No distension or tympany. No guarding or rebound. No evidence of tenderness throughout. Back: No spinal tenderness. No costovertebral tenderness. Full range of motion. Male : Normal genitalia with no discharge or lesions. Skin: Warm, dry with normal turgor. Normal color with no rashes, no lesions, and no evidence of cellulitis. MS/ Extremity: Pulses equal, no cyanosis. Neurovascular intact. Full, normal range of motion. Neuro: Awake and alert, GCS 15, oriented to person, place, time, and situation. Cranial nerves II-XII grossly intact. Motor strength 5/5 in all extremities. Sensory grossly intact. Cerebellar exam normal. Normal gait. Psych: Awake, alert, with orientation to person, place and time. Behavior, mood, and affect are within normal limits. 15:04 Respiratory: Exam negative for acute changes, accessory muscles, bronchial sounds, chest tenderness, chest pain, decreased breath sounds, respiratory distress, rhonchi, shortness of breath, splinting, 15:08 Chest/axilla: Exam negative for acute changes, lupe 15:08 Cardiovascular: Rate: normal, actual rate is 80 bpm, Rhythm: regular, Pulses: no pulse deficits are appreciated, Heart sounds: normal, normal S1and S2, no S3 or S4, no murmur, no rub, no gallop, 15:08 ECG was reviewed by the Attending Physician. Vital Signs: 12:52 BP 148 / 106; Pulse 82; Resp 18; Temp 98.5; Pulse Ox 100% ; Weight 77.11 kg; Height 5 nj1 ft. 10 in. ; Pain 5/10; 15:54 BP 150 / 86; Pulse 98; Resp 16; Temp 98.3(O); Pulse Ox 99% on R/A; tl4 12:52 Body Mass Index 24.39 (77.11 kg, 177.8 cm) nj1 12:52 Pain Scale: Adult nj1 MDM: 12:49 Patient medically screened. [facility] 15:06 Differential diagnosis: Nonspecific abd pain, viral gastroenteritis, gastroenteritis. lupe Differential Diagnosis: Obstructed Airway Bronchitis Influenza Upper Respiratory Infection Asthma Exacerbation Pneumonia. Data reviewed: vital signs, nurses notes, lab test result(s), EKG. I considered the following discharge prescriptions or medication management in the emergency department Medications were administered in the Emergency Department. See MAR. Independent interpretation of the following test(s) in the Emergency Department EKG: See my EKG interpretation above. Test considered but Not performed: Ultrasound no 2 echo. Historians other than the Patient: pt welll informed. Care significantly affected by the following chronic conditions: thyroid, svt, a fib, thyroid ca. Counseling: I had a detailed discussion with the patient and/or guardian regarding the historical points, exam findings, and any diagnostic results supporting the discharge/admit diagnosis, the presence of at least one elevated blood pressure reading (>120/80) during this emergency department visit, lab results, radiology results, the need for outpatient follow up, for definitive care, a mail agent, a family practitioner. 01/21 12:53 Order name: CBC with Diff; Complete Time: 15:02 [facility] 01/21 12:53 Order name: Comprehensive Metabolic Panel; Complete Time: 15:02 [facility] 01/21 12:53 Order name: Troponin High Sensitivity; Complete Time: 15: [facility] 01/21 12:53 Order name: Flu; Complete Time: 15: [facility] 01/21 12:53 Order name: SARS RAPID; Complete Time: 15: [facility] 01/21 12:53 Order name: Strep [facility] 01/21 14:44 Order name: Throat Culture EDMS 01/21 12:53 Order name: EKG; Complete Time: 12:53 [facility] 01/21 12:53 Order name: EKG - Nurse/Tech; Complete Time: 15:07 [facility] EC:08 Rate is 66 beats/min. Rhythm is regular. QRS [place] is Normal. [place] interval is normal. QRS lupe interval is normal. QT interval is normal. No Q waves. T waves are Inverted in leads II, III, aVF, V5, V6. No ST changes noted. Clinical impression: NSR w/ Non-specific ST/T Changes, Abnormal EKG without significant change, and No evidence of ischemia. Interpreted by me. Reviewed by me. Administered Medications: 14:43 Drug: NS 0.9% IV 1000 ml IV at 1 bolus Per protocol; 1000 mL bolus Route: IV; Rate: 1 tl4 bolus; Site: right antecubital; Delivery: Primary tubing; 15:39 Follow up: Response: No adverse reaction; IV Status: Completed infusion; IV Intake: tl4 1000ml 14:43 Drug: Ondansetron IVP 4 mg IVP once; over 2 minutes Route: IVP; Infused Over: 2 mins; tl4 Site: right antecubital; 15:40 Follow up: Response: No adverse reaction tl4 15:51 Drug: AZITHromycin PO 500 mg PO once Route: PO; tl4 15:51 Follow up: Response: No adverse reaction; Medication administered at discharge. tl4 Disposition Summary: 01/22/24 15:10 Discharge Ordered Notes: Location: Home [facility] Problem: new lupe Symptoms: have improved lupe Condition: Stable lupe Diagnosis - Acute upper respiratory infection, unspecified lupe - Nausea lupe Followup: lupe - With: Private Physician - When: 2 - 3 days - Reason: Recheck today's complaints, Continuance of care, Re-evaluation by your physician Discharge Instructions: - Discharge Summary Sheet lupe - Nausea, Adult lupe - Upper Respiratory Infection, Adult lupe - Cool Mist Vaporizer lupe - Upper Respiratory Infection, Adult, [id number] lupe - Cough, Adult, [id number] lupe - Cough, Adult lupe Forms: - Medication Reconciliation Form lupe - Thank You Letter lupe - Antibiotic Education lupe - Prescription Opioid Use lupe - Patient Portal Instructions lupe - Leadership Thank You Letter lupe - Work release form tl4 Prescriptions: - ondansetron 4 mg Oral Tablet,disintegrating - take 1 tablet ORAL route every 6-8 hours for 5 days; 20 tablet; Refills: 0, lupe Product Selection Permitted - Zithromax Z-Olman 250 mg Oral tablet - take 1 tablet ORAL route as directed for 5 days Day 1 - take two (2) tablets lupe one time. Day 2, 3, 4 , 5 take one (1) tablet once daily.; 6 tablet; Refills: 0, Product Selection Permitted Signatures: Dispatcher [employer] EDMS Jimmy Guadarrama MD MD cha Jaco, Norma, RN RN nj1 Agapito Gramajo RN RN tl4 Corrections: (The following items were deleted from the chart) 12:53 12:53 CBC+H.LAB.BRZ ordered. EDMS EDMS 12:53 12:53 COMPREHENSIVE METABOLIC PANEL+C.LAB.BRZ ordered. EDMS EDMS 12:53 12:53 Troponin High Sensitivity+C.LAB.BRZ ordered. EDMS EDMS 12:53 12:53 Influenza Screen (A \T\ B)+BA.LAB.BRZ ordered. EDMS EDMS 12:53 12:53 SARS-COV-2 Antigen Rapid+I.LAB.BRZ ordered. EDMS EDMS 12:53 12:53 Group A Streptococcus Rapid Sc+BA.LAB.BRZ ordered. EDMS EDMS
[2024-01-22] MEDS ORDERED: AZITHROMYCIN 250 MG TAB ONE (15:44)
[2024-01-22 20:22] VITALS: BP 150/86; TEMP 98.3; O2SAT 99
--- NOTE | 2024-01-23 12:43 | EKG ---
Test Date: 2024-01-22 Test Time: 15:04:49 Wool Grader: TL MEASUREMENT RESULTS: Intervals: Rate: 66 RI: 198 QRSD: 90 QT: 420 QTc: 440 Sandy: P: 70 RI: 198 QRS: 37 T: 25 INTERPRETIVE STATEMENTS: Normal sinus rhythm T wave abnormality, consider lateral ischemia Abnormal ECG Compared to ECG 08/05/2021 15:57:45 Possible ischemia now present First degree AV block no longer present Prolonged QT interval no longer present T-wave abnormality still present Electronically Signed On 01-23-24 12:40:28 CDT by Alex Covington
== END 2024-01-22 15:56 | disposition home or self-care (01) ==
LOC: ER 12:41
DX: J06.9 Acute upper respiratory infection, unspecified (principal); I50.9 Heart failure, unspecified; I48.91 Unspecified atrial fibrillation; F17.210 Nicotine dependence, cigarettes, uncomplicated; Z11.52 Encounter for screening for COVID-19; Z95.810 Presence of automatic (implantable) cardiac defibrillator
CPT/HCPCS: 96361; 93005; 87070; 85025; 36415; 87081; 84484; 80053; 87804 ×2; 96374; 99284; 87811; J2405; J7030

== ENCOUNTER 2025-02-12 09:33 | Inpatient (IN) | payer OTHER ==
[2025-02-11 16:10] LABS: Absolute Eosinophils 0.2 K/uL (0-0.5); Absolute Lymphocytes (CBC) 1.6 K/uL (0.7-4.9); Absolute Monocytes 0.4 K/uL (0.1-1.3); Absolute Neutrophil 4.3 K/uL (1.8-8.0); Basophils % 0.8 % (0-1.3); Eosinophils % 2.8 % (0-4.4); Hematocrit 45.9 % (39.6-49.0); Hemoglobin 15.4 g/dL (13.6-17.9); Lymphocytes % 24.5 % (15.3-44.8); MCHC 33.6 g/dL (32.0-36.0); MCV 92.4 fL (80-100); MPV 8.7 fL (7.6-11.3); Monocytes % 5.9 % (3.3-12.3); Nucleated Red Blood Cells % 0.2 % (0-0); Platelets 227 thou/uL (152-406); RBC Red Blood Cell Count 4.97 M/uL (4.33-5.43); Red Cell Distribution Width 13.2 % (12.1-15.2)
[2025-02-11 16:24] LABS: Anion Gap 8.7 mEq/L (5.0-15.0); Potassium 3.7 mEq/L (3.5-5.1)
[2025-02-12] MEDS: Ringers Lactate 1,000 ML IV ONE (10:15)
[2025-02-12] MEDS ORDERED: dexAMETHasone 10 MG/ML VIAL ONE (11:21)
[2025-02-12] MEDS ORDERED: propofoL 200 MG/20 ML VIAL IV ONE (11:21)
[2025-02-12] MEDS ORDERED: MIDAZOLAM HCL 2 MG/2 ML INJ ONE (11:21)
[2025-02-12] MEDS ORDERED: KETOROLAC 30 MG/ML INJ ONE (11:21)
[2025-02-12] MEDS ORDERED: LIDOCAINE 2% MPF 5 ML VIAL ONE (11:21)
[2025-02-12] MEDS ORDERED: FENTANYL CITR 100 MCG/2 ML ONE (11:21)
[2025-02-12] MEDS ORDERED: ONDANSETRON 4 MG/2 ML VIAL ONE (11:21)
[2025-02-12] MEDS: EPINEPHRINE 1 MG/ML VIAL ONE (11:26)
[2025-02-12] MEDS: ROPLVACAINE HCL 0 ML ONE (11:27)
--- NOTE | 2025-02-12 11:46 | EKG ---
Test Date: 2025-02-11 Test Time: 15:26:45 Return To Vendor: PREO MEASUREMENT RESULTS: Intervals: Rate: 64 [place]: 192 QRSD: 84 QT: 458 QTc: 472 [place]: P: 60 [place]: 192 QRS: 29 T: 215 INTERPRETIVE STATEMENTS: Normal sinus rhythm T wave abnormality, consider inferolateral ischemia Prolonged QT Abnormal ECG Compared to ECG 01/22/2024 15:04:49 Prolonged QT interval now present T-wave abnormality still present Possible ischemia still present Electronically Signed On 02-12-25 11:45:38 CDT by David Goldstein
[2025-02-12] MEDS ORDERED: NS 0.9% VIAL 10 ML ONE ×2 (11:59→12:21)
[2025-02-12] MEDS ORDERED: Phenylephrine HCl 10 MG/ML 1 ML VIAL ONE (12:21)
--- NOTE | 2025-02-12 12:50 | P.BOP ---
Preoperative diagnosis: left septic olecranon bursitis Postoperative diagnosis: same Primary procedure: left olerranon bursectomy with Sharp debridement and irrigation Estimated blood loss: 20 ccs Anesthesia: General Complications: None Transferred to: Recovery Room Condition: Good
[2025-02-12 14:13] VITALS: BMI 23.8
--- NOTE | 2025-02-12 14:40 | P.CNS ---
Date of Consult: 02/12/25 Reason for Consult: Medical management Requesting Physician: Denzel Naqvi Chief Complaint: Left elbow pain History of Present Illness: Patient is a pleasant 54-year-old male admitted to hospital today after undergoing a surgical procedure left olerranonbursectomy with sharp debridement and irrigation. On consult assessment, patient fully awake, denies any pain or discomfort at this time, left elbow in a sling. Hospitalist consulted for medical management . Allergies No Known Drug Allergies Allergy (Verified 02/11/25 15:05) Unknown Home Medications: Cephalexin [Keflex] 500 mg PO Q6HR 02/11/25 Levothyroxine Sodium 175 mcg PO DAILY 02/11/25 - Past Medical/Surgical History Diabetic: No -: CHF -: pacemaker with defibrillator -: thyriod ca - Social History Smoking Status: Current every day smoker Alcohol use: Yes CD- Drugs: No Caffeine use: Yes Place of Residence: Home Review of Systems 10-point ROS is otherwise unremarkable General: Unremarkable Eyes: Unremarkable ENT: Unremarkable Respiratory: Unremarkable Cardiovascular: Unremarkable Gastrointestinal: Unremarkable Genitourinary: Unremarkable Musculoskeletal: Unremarkable Integumentary: Other (Postop left elbow) Neurological: Unremarkable Lymphatics: Unremarkable Physical Examination Temp Pulse Resp BP Pulse Ox 97.1 F 63 16 130/83 02/12/25 13:22 02/12/25 13:22 02/12/25 13:22 02/12/25 13:22 General: Alert, Oriented x3, Cooperative HEENT: Atraumatic, Normocephalic, PERRLA, Mucous membr. moist/pink Neck: Supple, 2+ carotid pulse no bruit, Without JVD or thyroid abnormality Respiratory: Clear to auscultation bilaterally Cardiovascular: Normal pulses, Regular rate/rhythm, Normal S1 S2, No gallops, No rubs, No murmurs Gastrointestinal: Normal bowel sounds, Soft and benign, Non-distended, No ascites, No tenderness, No rebound, No guarding Musculoskeletal: No clubbing, No swelling, No erythema, Tenderness (Left elbow postop.) Integumentary: No rashes, No significant lesion, No erythema, No cyanosis, Other (Post- op left elbow) Neurological: Normal gait, Normal speech, Normal tone Laboratory Data (last 24 hrs) 02/11/25 02/11/25 15:20 15:20 WBC 6.50 Hgb 15.4 Hct 45.9 Plt Count 227 Sodium 136 Potassium 3.7 BUN 13 Creatinine 0.91 Glucose 91 Conclusions/Impression: Patient is a pleasant 54-year-old male who is a postop day one left olerranonbursectomy with sharp debridement and irrigation. Hospitalist consulted by surgeon to see the patient for medical management. Patient has a chronic history of hypothyroidism currently on levothyroxine. (1)Chronic hypothyroidism. -Continue home medication levothyroxine 175 mcg p.o. daily. (2)Post-op day one left elbow surgery. -Continue current antibiotic vancomycin 1.25 g every 12 hours IV as ordered by surgeon. -Continue current antibiotic Levaquin 500 mg p.o. daily as ordered by surgeon. -Continue on [place] 5/325 mg 1 p.o. every 6 hours as needed for pain. (3)Telemetry (4)Explained entire treatment plan to the patient, solicit questions answered and voiced understanding. Time Spent Managing Pts care (In Minutes): 47
[2025-02-12] MEDS: VANCOMYCIN 1.25 GM in NA CHLORIDE 0.9% 250 ML IVPB SCH (20:49)
--- NOTE | 2025-02-13 00:04 | OP ---
Date of Procedure: 02/12/2025 Surgeon: Denzel Naqvi MD Preoperative Diagnosis: Left septic olecranon bursitis. Postoperative Diagnosis: Left septic olecranon bursitis. Procedure: Left septic olecranon bursectomy with irrigation and sharp debridement using a curette, r ongeur, and scalpel. Complications: There were no complications. Pathology: Specimen was sent. We did leave the wound open. Indications For Procedure: Mr. Guadarrama is a 54-year-old male who has had pain and swelling related to his left elbow. He was seen by another physician and was started on Keflex. He did improve somew hat, however, failed to resolve. He arrived to see me in my office and had what appeared to be parti ally treated septic olecranon bursitis, did not appear to have any abscess formation per se, but defi nitely the olecranon bursa was somewhat erythematous as well as distended. He did have good range of motion of the elbow. No sign of septic arthritis. At that time, we discussed with him that perhaps we could continue the oral antibiotics, but these are often times not helpful as far as resolution o f the problem. He says he understood things as presented and came back to see me in my office where he had almost completed his antibiotics and essentially he was unchanged since the first time he had seen me, although improved since presentation to PCP. Risks, benefits, and alternatives of different methods of treating this were again discussed with him. At this time, explained for bursal excision , irrigation and debridement. He understands everything as presented as well as risks, benefits, and alternatives associated with it and agrees to proceed. Description Of Procedure: The patient was taken to the operating room, placed in supine position. G eneral anesthesia was easily obtained by Anesthesia staff. Following this, he was then rolled right side down on a stone bag with his bony prominences being checked by Anesthesia. His left upper extrem ity was then prepped and draped in usual sterile fashion for procedure. After this, a sterile tourni quet was placed on superior left arm. Left upper extremity was then prepped and draped in usual ster ile fashion. After this, a standard posterior incision was made carefully through skin only, skirtin g laterally around the tip of the elbow to avoid sparring directly on the tip. I then proceeded long itudinally along the posterior aspect of the triceps. Once the skin incision was made, meticulous he mostasis was maintained using Bovie electrocautery. The plane between the skin and the bursa is some what obscured by some scarring. However, very careful dissection was used to remove the bursa on the lateral side and free from the skin. Also, then freed superiorly and inferiorly. Attention was the n turned to the medial side and the more dorsal aspect was easily from the bursa. Great ca re was taken as we proceeded closer to the medial epicondyle to ensure no damage to the ulnar nerve. It was then shelled out until it was simply affixed to the region of the olecranon. This was then c arefully removed with sharp dissection. There is still some remaining thickened tissue, which was re moved using a rongeur. After this, a curette was also used to gently debride. The wound was then co piously irrigated with 3 L of sterile saline with meticulous hemostasis being obtained using Bovie el ectrocautery. The tourniquet has been dropped and as it is very typical, had bleeding from multiple sources. These were then controlled with a combination of pressure time and Bovie. Pressure was hel d until essentially there was no bleeding. The wound was then packed with a sterile Kerlix, which rhodes d been moistened and then covered with ABDs as well as soft roll to be followed by a posterior splint and Nate wrap. The patient was then awakened, taken to recovery room in good condition. There were no complications. SE/MODL Voice ID: [id number] Report ID: [id number]
[2025-02-13 05:36] LABS: Absolute Basophils 0.1 K/uL (0-0.5); Absolute Lymphocytes (CBC) 1.1 K/uL (0.7-4.9); Absolute Monocytes 0.6 K/uL (0.1-1.3); Absolute Neutrophil 12.7 K/uL (1.8-8.0); Basophils % 0.6 % (0-1.3); Eosinophils % 0.3 % (0-4.4); Hematocrit 42.9 % (39.6-49.0); Hemoglobin 14.8 g/dL (13.6-17.9); Lymphocytes % 7.4 % (15.3-44.8); MCH 31.6 pg (27.0-35.0); MCHC 34.4 g/dL (32.0-36.0); MCV 91.7 fL (80-100); MPV 8.6 fL (7.6-11.3); Neutrophils % 87.7 % (41.7-73.7); Platelets 232 thou/uL (152-406); RBC Red Blood Cell Count 4.68 M/uL (4.33-5.43)
[2025-02-13] MEDS: LEVOTHYROXINE SOD 0.1 MG TAB PO SCH (05:44)
[2025-02-13] MEDS: LEVOTHYROXINE SOD 0.075 MG TAB PO SCH (05:44)
[2025-02-13 05:52] LABS: Anion Gap 10.1 mEq/L (5.0-15.0); Potassium 4.1 mEq/L (3.5-5.1)
[2025-02-13] MEDS ORDERED: HOME MED 1 EA UNK (Levothyroxine Sodium [Levothyroxine Sodium] 175 MCG Tablet) PO SCH (09:00)
[2025-02-13] MEDS: levoFLOXacin 500 MG TAB PO SCH (09:24)
--- NOTE | 2025-02-13 12:39 | P.PN ---
Date of Service: 02/13/25 Subjective: No acute events overnight Reports some discomfort in the left elbow but not bad Some mild swelling to left hand ROS: 10 point ROS as noted above, otherwise negative Physical exam GEN: Alert, oriented, NAD HEENT: Normal conjunctiva, sclera anicteric CV: Regular rate and rhythm, no edema Pulm: Nonlabored respirations on room air ABD: Soft, nontender, nondistended MSK: No joint tenderness, left arm in sling, dressing in place Integumentary: No rashes Neuro: Normal speech, normal affect Vitals reviewed Assessment and plan (1)Chronic hypothyroidism. -Continue home medication levothyroxine 175 mcg p.o. daily. (2)Post-op day one left elbow surgery. -Continue current antibiotic vancomycin 1.25 g every 12 hours IV as ordered by surgeon. -Continue current antibiotic Levaquin 500 mg p.o. daily as ordered by surgeon. -Continue on [place] 5/325 mg 1 p.o. every 6 hours as needed for pain. -Plan for further surgical care tomorrow with wound closure and possible drain placement -1-2 days inpatient (3)Telemetry DVT PPX: SCD Code status: Animal Stunner Spent Managing Pts Care (In Minutes): 35
[2025-02-13] MEDS: HYDROCODONE/APAP 5/325 MG TAB PO PRN (21:38)
--- NOTE | 2025-02-13 22:13 | PN ---
Date of Progress Note: 02/13/2025 The patient is seen today, postop 1 day from irrigation, debridement, and bursal excision of the left elbow, which was done yesterday. He is in a splint. He says he does have some slight swelling of h is hand, but his pain is definitely manageable. He is not taking any medications. His dressing is c lean, dry, and intact. The splint is clean, dry, and intact. At this time, we will plan for a secon d-look irrigation and debridement and probable closure tomorrow at approximately 11:30 a.m. The risk s and benefits have been discussed with him. He states he understands things as presented. We will probably place a drain and discharge him tomorrow with removal of drain on Tuesday. However, this is the plan and we will see condition of the elbow tomorrow. Otherwise, he is doing as expected. /ALEX Voice ID: [id number] Report ID: [id number]
[2025-02-14 08:26] LABS: Absolute Basophils 0.1 K/uL (0-0.5); Absolute Eosinophils 0.2 K/uL (0-0.5); Absolute Lymphocytes (CBC) 1.8 K/uL (0.7-4.9); Absolute Monocytes 0.5 K/uL (0.1-1.3); Absolute Neutrophil 5.5 K/uL (1.8-8.0); Basophils % 0.7 % (0-1.3); Eosinophils % 2.1 % (0-4.4); Hematocrit 44.4 % (39.6-49.0); Hemoglobin 14.9 g/dL (13.6-17.9); Lymphocytes % 22.7 % (15.3-44.8); MCH 31.2 pg (27.0-35.0); MCHC 33.6 g/dL (32.0-36.0); MCV 93.1 fL (80-100); MPV 8.6 fL (7.6-11.3); Monocytes % 6.4 % (3.3-12.3); Neutrophils % 68.1 % (41.7-73.7); Platelets 223 thou/uL (152-406); RBC Red Blood Cell Count 4.77 M/uL (4.33-5.43); Red Cell Distribution Width 13.5 % (12.1-15.2)
[2025-02-14 08:54] LABS: Anion Gap 5.5 mEq/L (5.0-15.0); Potassium 4.5 mEq/L (3.5-5.1)
--- NOTE | 2025-02-14 09:18 | P.PN ---
Date of Service: 02/14/25 Subjective: Patient going back to OR today with Ortho Possible DC 1 to 2 days ROS: 10 point ROS as noted above, otherwise negative Physical exam GEN: Alert, oriented, NAD HEENT: Normal conjunctiva, sclera anicteric CV: Regular rate and rhythm, no edema Pulm: Nonlabored respirations on room air ABD: Soft, nontender, nondistended MSK: No joint tenderness, left arm in sling, dressing in place Integumentary: No rashes Neuro: Normal speech, normal affect Vitals reviewed Assessment and plan (1)Chronic hypothyroidism. -Continue home medication levothyroxine 175 mcg p.o. daily. (2)Post-op day one left elbow surgery. -Continue current antibiotic vancomycin 1.25 g every 12 hours IV as ordered by surgeon. -Continue current antibiotic Levaquin 500 mg p.o. daily as ordered by surgeon. -Continue on [place] 5/325 mg 1 p.o. every 6 hours as needed for pain. 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
[2025-02-14] MEDS ORDERED: Ringers Lactate 1,000 ML IV ONE (10:37)
[2025-02-14] MEDS ORDERED: FENTANYL CITR 100 MCG/2 ML ONE (11:30)
[2025-02-14] MEDS ORDERED: LIDOCAINE 1% MPF 5 ML VIAL ONE (11:30)
[2025-02-14] MEDS ORDERED: MIDAZOLAM HCL 2 MG/2 ML INJ ONE (11:30)
[2025-02-14] MEDS ORDERED: propofoL 200 MG/20 ML VIAL IV ONE (11:30)
[2025-02-14] MEDS ORDERED: KETOROLAC 30 MG/ML INJ ONE (12:18)
[2025-02-14] MEDS ORDERED: GLYCOPYRROLATE 0.2 MG/ML SYR ONE (12:37)
--- NOTE | 2025-02-14 12:54 | P.BOP ---
Preoperative diagnosis: s/p bursectomy for left septic olecranon bursitis Postoperative diagnosis: same Primary procedure: Irrigation and sharp wound debridement with closure over drain Estimated blood loss: 20 ccs Anesthesia: General Complications: None Transferred to: Recovery Room Condition: Good
[2025-02-14 13:03] VITALS: TEMP 97; O2SAT 100
[2025-02-14 13:23] VITALS: BP 140/43
--- NOTE | 2025-02-14 15:59 | OP ---
Date of Procedure: 02/14/2025 Surgeon: Denzel Naqvi MD Preoperative Diagnosis: Left elbow status post olecranon bursectomy with sharp irrigation debridemen t being left open. Postoperative Diagnosis: Left elbow status post olecranon bursectomy with sharp irrigation debrideme nt being left open. Procedure: Left elbow wound irrigation, sharp debridement including scissors, scalpel and rongeur wi th closure over drain. Estimated Blood Loss: 20 cc. Complications: There were no complications. Pathology: Specimen was sent. Indications For Operation: Please refer to his previous operative report. The indication for this o peration is he has open wound after bursectomy and debridement. This is for second-look irrigation, debridement to ensure there is no remaining areas of abscess or pus and that the wound bed is viable with closure over a drain. The patient says he understands everything is presented and wishes to pro ceed. Description Of Procedure: The patient was taken to the operating room, placed in supine position. G eneral anesthesia was obtained by staff. Following this, he was then rolled onto his right side on b dwain bag with axillary roll with his bony prominences being protected. This was followed by prepping and draping in usual sterile fashion. A sterile tourniquet was placed on superior left arm, however, was not used throughout the case. After this, approximately 2.5 L of sterile saline was then used f or irrigation and it appeared that all of the surfaces appeared viable without any sign of necrosis o r purulent material. Scalpel, scissors, and curette were then used to debride anything, which could be possibly suspicious. However, there is scanty amount of this. After this, another 0.5 L of steri le saline was used for irrigation and a medium Hemovac drain was placed. The skin was then closed us ing nylon sutures. The patient was placed in an Aquacel dressing to help with the function of the dr lawson. He was then placed extremely well-padded in sterile dressing as well as a posterior splint, mirza kened, taken to recovery room in good condition. There were no complications. SE/MODL Voice ID: [id number] Report ID: [id number]
== END 2025-02-14 14:50 | disposition home or self-care (01) | DRG 502 ==
LOC: OR 09:33 → ERHOLD 12:50 → 4TH 14:08
PROVIDERS: ADMIT Orthopaedic Surgery; ATTEND Orthopaedic Surgery
PROC: 0MB40ZZ Excision of Left Elbow Bursa and Ligament, Open Approach (ICD-10-PCS; principal; 2025-02-12 11:30)
DX: M71.122 Other infective bursitis, left elbow (principal); E03.9 Hypothyroidism, unspecified; F17.200 Nicotine dependence, unspecified, uncomplicated; Z79.890 Hormone replacement therapy; Z79.899 Other long term (current) drug therapy
CPT/HCPCS: 36415; 80048; 80202; 85025; 87070; 87075; 87205; 88304; 93005; A4216; J0171; J1100; J2003; J2250; J2371; J2405; J2704; J3010; J3370; J7050; J7120